=== PATIENT | female | born 1995 | race Caucasian/White ===

== ENCOUNTER → 2017-08-17 14:50 | Outpatient (CLI) | payer SELFPAY | PROVIDERS: Visit Provider Obstetrics & Gynecology | DX: N91.2 Amenorrhea, unspecified (principal) | CPT/HCPCS: 36415; 84702 ==

== ENCOUNTER → 2017-08-27 13:13 | Outpatient (CLI) | payer SELFPAY ==
--- NOTE | 2017-08-27 13:13 | DT_ITS ---
This patient was seen during an EMR downtime August 23, 2017 - August 30, 2017. This patient may have a combination of paper and electronic documentation or all paper documentation. All documentation is viewable within the e-chart portion of [employer] for each patient visit.
[2017-08-27 14:51] LABS: Eosinophils% 0.9 % (0-5); Hematocrit 40.1 % (37-47); Hemoglobin 13.5 g/dl (12.0-15.0); Lymphocyte % 28.3 % (19-41); Mean Corp Hgb Conc 33.7 g/gl (32-36); Mean Corpuscular Hgb 28.6 pg (27.0-32.0); Mean Platelet Vol. 9.5 fl (6.2-12.0); POSITIVE COUNT NO; POSITIVE DIFFERENTIAL NO; POSITIVE MORPHOLOGY NO; Platelet Count 224 K/mm3 (150-450); RBC Distribution Width CV 12.7 % (11.6-14.6); RBC Distribution Width SD 38.7 fl (35.1-43.9); Red Blood Count 4.72 M/mm3 (4.2-5.4); White Blood Count 5.5 K/mm3 (4.4-11.0)
[2017-08-27 14:52] LABS: Absolute Lymphocyte Count 1.57 X10^3/ul (0.83-4.51); Absolute Neutrophil Count 3.4 X10^3/uL (2.0-7.7); Basophil# 0.02 X10^3/uL; Basophil% 0.4 % (0-1); Eosinophil# 0.05 X10^3/uL; Lymphocyte # 1.57 X10^3/ul (4.0); Neutrophil # 3.38 X10^3/uL (2.7-7.7)
[2017-08-28 10:59] LABS: Chlamydia Trachomatis by PCR Negative (Negative); Neisserai gonorrhoeae by PCR Negative (Negative); Probe Check PASS; Sample Adequacy Control PASS; Specimen Processing Control PASS
[2017-08-30 10:06] LABS: HIV - WCH Non-Reactive (Nonreactive); Rubella IgG 268.2 IU/mL
[2017-09-03 03:47] LABS: Rapid Plasmin Reagin (RPR) NONREACTIVE (NONREACTIVE)
== END ==
PROVIDERS: Visit Provider Obstetrics & Gynecology
DX: O09.899 Supervision of other high risk pregnancies, unspecified trimester (principal); Z3A.00 Weeks of gestation of pregnancy not specified
CPT/HCPCS: 36415; 85025; 86592; 86703; 86706; 86762; 86850; 86870; 86900; 87086; 87088; 87340; 87491; 87591

== ENCOUNTER → 2017-08-27 14:00 | Outpatient (CLI) | payer SELFPAY ==
--- NOTE | 2017-08-27 14:00 | DT_ITS ---
This patient was seen during an EMR downtime August 23, 2017 - August 30, 2017. This patient may have a combination of paper and electronic documentation or all paper documentation. All documentation is viewable within the e-chart portion of [employer] for each patient visit.
== END ==
PROVIDERS: Visit Provider Obstetrics & Gynecology
DX: O09.90 Supervision of high risk pregnancy, unspecified, unspecified trimester (principal)
CPT/HCPCS: 87086; 87491; 87591

== ENCOUNTER → 2017-09-07 14:50 | Outpatient (CLI) | payer SELFPAY | PROVIDERS: Visit Provider Obstetrics & Gynecology | DX: D80.9 Immunodeficiency with predominantly antibody defects, unspecified (principal) ==

== ENCOUNTER → 2017-11-08 17:09 | Outpatient (CLI) | payer MEDICAID, SELFPAY | PROVIDERS: Visit Provider Nurse Practitioner Women's Health | DX: N89.8 Other specified noninflammatory disorders of vagina (principal) | CPT/HCPCS: 87070; 87205 ==

== ENCOUNTER → 2017-11-24 13:18 | Outpatient (CLI) | payer MEDICAID, SELFPAY | PROVIDERS: Visit Provider Obstetrics & Gynecology | DX: Z34.92 Encounter for supervision of normal pregnancy, unspecified, second trimester (principal); Z3A.20 20 weeks gestation of pregnancy | CPT/HCPCS: 76805 ==

== ENCOUNTER → 2017-12-08 09:58 | Outpatient (CLI) | payer MEDICAID, SELFPAY ==
[2017-12-08 11:26] LABS: Creatinine, Urine (random) < 13.00 mg/dL (NO RANGE EST.); Protein, Urine (Random) < 6.0 mg/dL (<11.9)
[2017-12-08 12:44] LABS: Absolute Lymphocyte Count 1.25 X10^3/ul (0.83-4.51); Absolute Neutrophil Count 5.3 X10^3/uL (2.0-7.7); Basophil# 0.01 X10^3/uL; Basophil% 0.1 % (0-1); Eosinophil# 0.03 X10^3/uL; Eosinophils% 0.4 % (0-5); Hematocrit 31.4 % (37-47); Hemoglobin 10.5 g/dl (12.0-15.0); Lymphocyte # 1.25 X10^3/ul (4.0); Lymphocyte % 17.6 % (19-41); Mean Corp Hgb Conc 33.4 g/gl (32-36); Mean Corpuscular Hgb 28.5 pg (27.0-32.0); Mean Corpuscular Volume 85.3 fL (81-99); Mean Platelet Vol. 10.2 fl (6.2-12.0); Monocyte# 0.49 X10^3/uL; Monocyte% 6.9 % (0-10); Neutrophil # 5.27 X10^3/uL (2.7-7.7); Neutrophil % 74.4 % (47-70); Platelet Count 188 K/mm3 (150-450); RBC Distribution Width CV 12.6 % (11.6-14.6); RBC Distribution Width SD 37.8 fl (35.1-43.9); Red Blood Count 3.68 M/mm3 (4.2-5.4); White Blood Count 7.1 K/mm3 (4.4-11.0)
[2017-12-08 12:49] LABS: POSITIVE COUNT NO; POSITIVE DIFFERENTIAL NO; POSITIVE MORPHOLOGY NO
[2017-12-08 12:59] LABS: ALB/GLOB Ratio 0.8 RATIO (0.9-2.4); AST(SGOT) 12 U/L (15-37); Alanine Aminotransfer ALT/SGPT 14 U/L (13-56); Albumin, Serum 2.7 g/dL (3.2-5.0); Alkaline Phosphatase 69 U/L (45-117); Anion Gap 11 (5-15); BUN 5 mg/dL (7-18); BUN/Creat Ratio 10.9 RATIO (10-20); Calcium,Total 7.9 mg/dL (8.5-10.1); Chloride 105 mmol/L (98-107); Creatinine, Serum 0.46 mg/dL (0.55-1.02); EST Glomerular Filtration Rate 178 mL/min (>60); Est Glom Filt Rate - Afr Amer 215 mL/min (>60); Globulin 3.6 g/dL (2.2-4.2); Glucose 97 mg/dL (74-106); LDH 179 U/L (84-246); Potassium 3.4 mmol/L (3.5-5.1); Protein, Total 6.3 g/dL (6.4-8.2); Sodium Level 136 mmol/L (136-145); Uric Acid 2.6 mg/dL (2.6-6.0)
== END ==
PROVIDERS: Visit Provider Nurse Practitioner Women's Health
DX: O09.90 Supervision of high risk pregnancy, unspecified, unspecified trimester (principal); Z86.32 Personal history of gestational diabetes; Z3A.00 Weeks of gestation of pregnancy not specified
CPT/HCPCS: 36415; 80053; 82570; 83615; 84156; 84550; 85025; 87086; 87088

== ENCOUNTER → 2018-01-06 15:38 | Outpatient (CLI) | payer MEDICAID, SELFPAY ==
[2018-01-06 17:35] LABS: Glucose Challenge Gest 1H 50g 110 mg/dL (70-140)
[2018-01-06 17:38] LABS: Absolute Neutrophil Count 5.1 X10^3/uL (2.0-7.7); Basophil# 0.01 X10^3/uL; Basophil% 0.1 % (0-1); Eosinophil# 0.05 X10^3/uL; Eosinophils% 0.7 % (0-5); Hematocrit 30.9 % (37-47); Hemoglobin 9.9 g/dl (12.0-15.0); Lymphocyte % 19.3 % (19-41); Mean Corpuscular Hgb 26.7 pg (27.0-32.0); Mean Corpuscular Volume 83.3 fL (81-99); Mean Platelet Vol. 9.5 fl (6.2-12.0); Monocyte# 0.63 X10^3/uL; Monocyte% 8.7 % (0-10); Neutrophil # 5.09 X10^3/uL (2.7-7.7); Neutrophil % 70.2 % (47-70); Platelet Count 205 K/mm3 (150-450); RBC Distribution Width SD 38.3 fl (35.1-43.9); Red Blood Count 3.71 M/mm3 (4.2-5.4); White Blood Count 7.3 K/mm3 (4.4-11.0)
[2018-01-06 17:43] LABS: POSITIVE COUNT NO; POSITIVE DIFFERENTIAL NO; POSITIVE MORPHOLOGY NO
== END ==
PROVIDERS: Referring Provider Nurse Practitioner Women's Health; Visit Provider Nurse Practitioner Women's Health
DX: Z34.90 Encounter for supervision of normal pregnancy, unspecified, unspecified trimester (principal); Z86.32 Personal history of gestational diabetes
CPT/HCPCS: 36415; 82950; 85025; 86850; 86870; 86900

== ENCOUNTER 2018-01-15 10:35 | Outpatient (CLI) | payer MEDICAID, SELFPAY ==
[2018-01-15 10:47] VITALS: BMI 24.6
[2018-01-15 11:44] LABS: Hematocrit 30.9 % (37-47); Hemoglobin 9.9 g/dl (12.0-15.0); Mean Corpuscular Hgb 26.4 pg (27.0-32.0); Mean Corpuscular Volume 82.4 fL (81-99); Mean Platelet Vol. 8.9 fl (6.2-12.0); Platelet Count 154 K/mm3 (150-450); RBC Distribution Width CV 13.7 % (11.6-14.6); RBC Distribution Width SD 41.4 fl (35.1-43.9); Red Blood Count 3.75 M/mm3 (4.2-5.4); White Blood Count 6.4 K/mm3 (4.4-11.0)
[2018-01-15 11:45] LABS: Scan Indicated on CBC? Y/N NO
[2018-01-15 11:57] LABS: Fibrinogen 338 mg/dl (203-444)
--- NOTE | 2018-01-16 02:59 | OB.TRI.NOTE ---
- Problem List (1) Vaginal bleeding during Status: Acute History of Present Illness Date of Service: 01/15/18 Was patient seen by the physician?: No Reason For Visit: BLEEDING History of Present Illness: co small vaginal bleeding no regular ctx Allergies No Known Allergies Allergy (Verified 01/15/18 10:51) - Pertinent Past Medical History Medical History: Past Medical History (Last Reviewed 01/06/18 @ 15:06 by Cece Mckeon) RH negative Laboratory Studies: Laboratory Tests 01/15/18 01/15/18 Range/Units 11:26 11:26 WBC 6.4 (4.4-11.0) K/mm3 RBC 3.75 L (4.2-5.4) M/mm3 Hgb 9.9 L (12.0-15.0) g/dl Hct 30.9 L (37-47) % MCV 82.4 (81-99) fL MCH 26.4 L (27.0-32.0) pg MCHC 32.0 (32-36) g/gl RDW 13.7 (11.6-14.6) % RDW Differential 41.4 (35.1-43.9) fl Plt Count 154 (150-450) K/mm3 MPV 8.9 (6.2-12.0) fl Fibrinogen 338 (203-444) mg/dl NST - FHR Rate Baby A Baseline: 150 Variability:: Moderate Accelerations:: 15 x 15 Decelerations:: None NST Reactive:: Yes FHR Category:: Category I Uterine Activity:: no regular Impression/Plan vaginal bleeding - cervix closed and normal cbc fibrinogen, no labor. dc home precautions reviewed
== END 2018-01-15 13:30 | disposition home or self-care (01) ==
LOC: WPOUT 10:38 → WP 10:39
PROVIDERS: Referring Provider Obstetrics & Gynecology; Visit Provider Obstetrics & Gynecology
DX: O46.90 Antepartum hemorrhage, unspecified, unspecified trimester (principal); Z3A.00 Weeks of gestation of pregnancy not specified
CPT/HCPCS: 36415; 59025; 59050; 85027; 85384; 99218; G0378

== ENCOUNTER 2018-01-23 20:51 | Outpatient (CLI) | payer MEDICAID, SELFPAY ==
[2018-01-23 21:22] VITALS: BMI 24.6
[2018-01-23 21:56] LABS: Color, Urine Yellow (Yellow); Glucose, Dipstick Normal (Normal); Leukocyte Esterase-Dipstick 500 /ul (Negative); Nitrite-Dipstick Negative (Negative); Occult Blood-Urine 10 /ul (Negative); Protein-Dipstick 30 mg/dl (Negative); Specific Gravity, Urine 1.025 (1.002-1.030); Urine Bilirubin Dipstick Negative (Negative); Urine Clarity Sl. Cloudy (Clear); Urine Urobilinogen 1 mg/dl (Normal)
[2018-01-23 22:04] LABS: Ketone-Dipstick 150 mg/dl (Negative)
[2018-01-23 22:06] LABS: White Blood Cells 50-100 SEEN /hpf (0-5)
[2018-01-23 22:10] LABS: Red Blood Cells-Urine 5-10 SEEN /hpf (0-5); Squamous Epithelial Cells - UA 25-50 SEEN /hpf (5-10)
[2018-01-23 22:11] LABS: Bacteria 3+ /hpf (None Seen)
[2018-01-23 22:12] LABS: Mucous, Urine 2+ /hpf (<or=2+); Yeast-Urine RARE /hpf (None Seen)
[2018-01-23 22:14] LABS: Fetal Fibronectin Negative
[2018-01-23 23:40] VITALS: RESP 18
--- NOTE | 2018-01-31 21:18 | OB.TRI.NOTE ---
- Problem List (1) False labor Status: Acute (2) Vaginal bleeding during Status: Acute History of Present Illness Date of Service: 01/23/18 Was patient seen by the physician?: No Reason For Visit: RULE OUT LABOR History of Present Illness: co small bleeding and irregular ctx. she has been under increased stress lately due to her leaving her. Allergies No Known Allergies Allergy (Verified 01/23/18 21:21) - Pertinent Past Medical History Medical History: Past Medical History (Last Reviewed 01/18/18 @ 15:11 by Adrienne Sue) RH negative Laboratory Studies: Laboratory Tests 01/23/18 01/23/18 Range/Units 21:12 19:40 Urine Color Yellow (Yellow) Urine Clarity Sl. Cloudy (Clear) Urine pH 6.0 (5.0 - 8.0) Ur Specific [place] 1.025 (1.002-1.030) Urine Protein 30 H (Negative) mg/dl Urine Glucose (UA) Normal (Normal) mg/dl Urine Ketones 150 H (Negative) mg/dl Urine Occult Blood 10 H (Negative) /ul Urine Nitrite Negative (Negative) Urine Bilirubin Negative (Negative) mg/dL Urine Urobilinogen 1 H (Normal) mg/dl Ur Leukocyte Esterase 500 H (Negative) /ul Urine RBC 5-10 SEEN (0-5) /hpf Urine WBC 50-100 SEEN (0-5) /hpf Ur Squamous Epith Cells 25-50 SEEN (5-10) /hpf Urine Bacteria 3+ (None Seen) /hpf Urine Mucus 2+ (<or=2+) /hpf Urine Yeast RARE (None Seen) /hpf Fibronectin Negative Physical Exam Vitals: Vital Signs Resp 18 01/23/18 23:40 NST - FHR Rate Baby A Baseline: 145 Variability:: Moderate Accelerations:: 10 x 10 Decelerations:: None NST Reactive:: Yes FHR Category:: Category I Uterine Activity:: irritability Impression/Plan threatened labor, small bleeding. cervix not dilated, extended monitoring showed reassuring status. no labor. dc home kick counts and labor precautions.
== END 2018-01-23 23:40 | disposition home or self-care (01) ==
LOC: WPOUT 21:06 → WP 21:07
PROVIDERS: Referring Provider Obstetrics & Gynecology; Visit Provider Obstetrics & Gynecology
DX: O60.00 Preterm labor without delivery, unspecified trimester (principal); O46.90 Antepartum hemorrhage, unspecified, unspecified trimester; Z3A.00 Weeks of gestation of pregnancy not specified
CPT/HCPCS: 59025; 59050; 81001; 82731; 87086; 87088; 99218; G0378

== ENCOUNTER 2018-09-07 21:56 | Emergency (ER) | payer MEDICAID, SELFPAY ==
[2018-04-26 14:12] VITALS: BMI 26.6
[2018-09-07 21:57] VITALS: BP 113/97; PULSE 102; RESP 15; TEMP 37.3; O2SAT 99; BMI 20.4
[2018-09-07 22:15] LABS: Mucous, Urine 0 SEEN /hpf (<or=2+); Red Blood Cells-Urine 0 SEEN /hpf (0-5)
[2018-09-07 22:16] LABS: Color, Urine Yellow (Yellow); Glucose, Dipstick Normal (Normal); Ketone-Dipstick Negative (Negative); Leukocyte Esterase-Dipstick 500 /ul (Negative); Nitrite-Dipstick Positive (Negative); Occult Blood-Urine 150 /ul (Negative); Protein-Dipstick 100 mg/dl (Negative); Specific Gravity, Urine 1.015 (1.002-1.030); Urine Bilirubin Dipstick Negative (Negative); Urine Clarity Cloudy (Clear); Urine Urobilinogen Normal (Normal)
[2018-09-07 22:19] LABS: Internal QC Validated? YES +Cl - CLEAR BKGD; Pregnancy, Urine Negative Negative
[2018-09-07 22:24] LABS: White Blood Cells >100 SEEN /hpf (0-5)
[2018-09-07 22:25] LABS: Bacteria 3+ /hpf (None Seen); Squamous Epithelial Cells - UA 5-10 SEEN /hpf (5-10)
--- NOTE | 2018-09-07 22:34 | ED.DCSUM_ITS ---
History of Present Illness Chief Complaint: Flank Pain Informant: Patient Onset: Weeks - Onset 1 week ago Context: Sudden Onset Timing: Continuous Quality: Pain Location: Right flank and right anterior mid abdomen Current Severity: Mild Maximum Severity: Moderate Worsened by: Movement Relieved by: Better if patient remains still Associated Symptoms: Nausea, dysuria, frequency Narrative: Patient is a 22-year-old woman who reports right flank pain that started approximate 1 week ago. She thought she pulled a muscle. Pain radiated anteriorly. She now complains of dysuria and frequency. She denies fever or chills. She does report nausea without vomiting diarrhea. She has not had a menstrual period in 3 years. She has an IUD in place. She has no symptoms of . She has no other complaints. Prior similar symptoms: Yes - Pyelonephritis Recent Illness/Hospitalization: No - Past Medical History (1) History of pyelonephritis Status: Acute Past Medical History - Allergies and Home Meds Allergies/Adverse Reactions: Allergies No Known Allergies Allergy (Verified 09/07/18 22:01) Primary Care Physician: Care Physician,No Primary [Primary Care Provider] - Prior records reviewed: Yes Lives: Spouse/ Significant Other, With Family Smoking Status: Never smoker Alcohol: Rare Review of Systems General: Denies: Chills, Fever, Malaise, Subjective, Sweats Eyes: Denies: Visual changes - bilaterally, Blurred Vision - bilaterally ENT: Denies: Rhinorrhea - Right, Sore throat Cardiovascular: Denies: Chest pain, Palpitations, Heart racing Respiratory: Denies: Dyspnea, Cough, Dyspnea on exertion Gastrointestinal: Reports: Abdominal pain, Nausea. Denies: Vomiting, Diarrhea, Constipation, Melena - ., Hematochezia Genitourinary: Reports: Dysuria, Frequency - .. Denies: Hematuria Musculoskeletal: Reports: Back pain. Denies: Myalgias, Arthralgias, Neck pain, Swelling, Extremity Pain Skin: Denies: Rash, Wounds Neurological: Denies: Headache, Weakness Hematologic: Denies: Easy bruising, Easy bleeding Allergy: Denies: Uticaria, Swelling of the mouth, Swelling of the tongue Physical Exam Vital Signs/Narrative: Vital Signs Temp Pulse Resp BP Pulse Ox 09/07/18 21:57 99.1 F 102 H 15 113/97 H 99 Inital Vital Signs reviewed: Yes General: Well nourished, Well developed, No Acute Distress Head: Normocephalic, Atraumatic Eyes: Perrl, EOMI. Negative for: Pale conjunctiva, Scleral icterus, - ENT: Moist mucous membranes, No rhinorrhea Neck: Supple, Nontender, No lymphadenopathy, No JVD Cardiovascular: Regular rhythm, No murmurs, Normal S1, Normal S2, Tachycardia Respiratory: No distress, CTA bilaterally, Chest nontender Abdomen: Soft, Nontender, Nondistended, Normal bowel sounds Back: Nontender, Normal Inspection, CVA tenderness - On the right side Extremities: Nontender, No edema Skin: Normal color, No rash, No Trauma. Negative for: Cyanosis, Diaphoresis, Jaundice Neurological: Alert, Oriented x3, Cranial nerves II-XII grossly intact, Normal Strength, Normal Sensation Psychological: Normal affect, Normal Mood Diagnostic/Tx/Re-eval - Medical Decision Making Patient's history and physical exam is consistent with pyelonephritis. UA was obtained. UA is consistent with infection. Urine culture was sent and patient received 1 dose of Rocephin. She was discharged with 7-day course of ciprofloxacin. Patient was instructed follow-up with her primary care physician. ED Disposition - Plan for ED Patient: Disposition: Home or Assisted Living Diagnosis: Acute pyelonephritis Instructions: PYELONEPHRITIS, Female (Adult) Prescriptions: Ciprofloxacin [Cipro] 500 mg PO BID #14 tab Prescription Printed Hydrocodone Bitart/Apap 5-325 [[place] 5MG-325MG] 1 tab PO Q6H PRN PRN 3 Days #10 tab PRN Reason: Pain Prescription Printed Referrals: Care Physician,No Primary [Primary Care Provider] - Mony Billingsley MD [STAFF PHYSICIAN] - 3-5 Days if not improving
[2018-09-07] MEDS: Ceftriaxone 1 GM/50 ML BAG IV (22:56)
[2018-09-07] MEDS: HYDROcodone Bitartrate/Apap 5/325 Tablet PO (23:01)
[2018-09-07 23:51] VITALS: RESP 15
== END 2018-09-07 23:52 | disposition home or self-care (01) ==
PROVIDERS: Emergency Provider Emergency Medicine
DX: N10 Acute pyelonephritis (principal); Z97.5 Presence of (intrauterine) contraceptive device
CPT/HCPCS: 81001; 81025; 87086; 87088; 87186; 96365; 99284; J7050; A4216

== ENCOUNTER 2018-09-17 21:43 | Emergency (ER) | payer MEDICAID, SELFPAY ==
[2018-09-17 21:43] VITALS: BP 94/79; PULSE 92; RESP 18; O2SAT 98
[2018-09-17 21:44] VITALS: BP 103/56; PULSE 111; RESP 20; TEMP 37.4; O2SAT 98; BMI 22.1
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
[2018-09-17] MEDS: fentaNYL 100 MCG/2 ML Ampul 50 MCG IV (21:57)
[2018-09-17] MEDS: Ondansetron 4 MG/2 ML Vial IV (21:57)
[2018-09-17 22:07] LABS: Absolute Lymphocyte Count 3.15 X10^3/ul (0.83-4.51); Absolute Neutrophil Count 3.8 X10^3/uL (2.0-7.7); Basophil# 0.03 X10^3/uL; Basophil% 0.4 % (0-1); Eosinophil# 0.11 X10^3/uL; Eosinophils% 1.4 % (0-5); Hematocrit 40.2 % (37-47); Hemoglobin 13.2 g/dl (12.0-15.0); Lymphocyte # 3.15 X10^3/ul (4.0); Lymphocyte % 41.2 % (19-41); Mean Corp Hgb Conc 32.8 g/gl (32-36); Mean Corpuscular Hgb 25.3 pg (27.0-32.0); Mean Platelet Vol. 9.2 fl (6.2-12.0); Monocyte% 6.5 % (0-10); Neutrophil % 49.7 % (47-70); Platelet Count 342 K/mm3 (150-450); RBC Distribution Width CV 14.6 % (11.6-14.6); RBC Distribution Width SD 39.5 fl (35.1-43.9); Red Blood Count 5.22 M/mm3 (4.2-5.4); White Blood Count 7.7 K/mm3 (4.4-11.0)
[2018-09-17 22:08] LABS: POSITIVE COUNT NO; POSITIVE DIFFERENTIAL NO; POSITIVE MORPHOLOGY NO
[2018-09-17 22:11] LABS: Color, Urine Yellow (Yellow); Glucose, Dipstick Normal (Normal); Ketone-Dipstick Negative (Negative); Leukocyte Esterase-Dipstick 100 /ul (Negative); Nitrite-Dipstick Negative (Negative); Occult Blood-Urine 150 /ul (Negative); Protein-Dipstick 15 mg/dl (Negative); Specific Gravity, Urine 1.025 (1.002-1.030); Urine Bilirubin Dipstick Negative (Negative); Urine Clarity Clear (Clear); Urine Urobilinogen Normal (Normal)
[2018-09-17 22:14] LABS: Internal QC Validated? YES +Cl - CLEAR BKGD; Pregnancy, Urine Negative Negative
[2018-09-17 22:16] LABS: White Blood Cells 5-10 SEEN /hpf (0-5)
[2018-09-17 22:17] LABS: Bacteria 1+ /hpf (None Seen); Mucous, Urine 1+ /hpf (<or=2+); Red Blood Cells-Urine 10-25 SEEN /hpf (0-5); Squamous Epithelial Cells - UA 0-5 SEEN /hpf (5-10)
[2018-09-17 22:18] LABS: ALB/GLOB Ratio 1.1 RATIO (0.9-2.4); AST(SGOT) 19 U/L (15-37); Alanine Aminotransfer ALT/SGPT 19 U/L (13-56); Alkaline Phosphatase 101 U/L (45-117); Anion Gap 3 (5-15); BUN 13 mg/dL (7-18); BUN/Creat Ratio 15.1 RATIO (10-20); Calcium,Total 8.8 mg/dL (8.5-10.1); Chloride 108 mmol/L (98-107); Creatinine, Serum 0.86 mg/dL (0.55-1.02); EST Glomerular Filtration Rate 85 mL/min (>60); Est Glom Filt Rate - Afr Amer 103 mL/min (>60); Globulin 3.8 g/dL (2.2-4.2); Glucose 111 mg/dL (74-106); Protein, Total 7.8 g/dL (6.4-8.2); Sodium Level 140 mmol/L (136-145)
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
[2018-09-17 22:24] LABS: Amphetamine Urine VISTA NEGATIVE (<1000 ng/mL); Barbiturate Urine VISTA NEGATIVE (< 200 ng/mL); Benzodiazepine Urine VISTA NEGATIVE (< 200 ng/mL); Cocaine Urine VISTA NEGATIVE (< 300 ng/mL); Ecstacy Urine VISTA NEGATIVE (< 500 ng/mL); Methadone Urine VISTA NEGATIVE (< 300 ng/mL); PCP Urine VISTA NEGATIVE (< 25 ng/mL); THC Urine VISTA POSITIVE (< 50 ng/mL); Vista UDS pH Range 5
[2018-09-17 22:32] LABS: Alcohol, Blood (Medical)-Serum < 3.0 mg/dL
[2018-09-17 22:37] VITALS: O2SAT 100
[2018-09-17 22:55] VITALS: BP 116/72; PULSE 94; RESP 16; O2SAT 100
== END 2018-09-17 22:45 | disposition short-term general hospital (02) ==
PROVIDERS: Emergency Provider Emergency Medicine
DX: S00.81XA Abrasion of other part of head, initial encounter (principal); S02.2XXA Fracture of nasal bones, initial encounter for closed fracture; S92.351A Displaced fracture of fifth metatarsal bone, right foot, initial encounter for closed fracture; S06.9X9A Unspecified intracranial injury with loss of consciousness of unspecified duration, initial encounter; V43.62XA Car passenger injured in collision with other type car in traffic accident, initial encounter; Y93.9 Activity, unspecified; Y92.89 Other specified places as the place of occurrence of the external cause; Y99.9 Unspecified external cause status; Z72.0 Tobacco use
CPT/HCPCS: 73630; 80053; 80307; 80320; 81001; 81025; 85025; 96374; 96375; 99285; G0480; J2405

== ENCOUNTER → 2018-09-29 10:58 | Outpatient (CLI) | payer MEDICAID, SELFPAY ==
[2018-09-17 21:44] VITALS: BMI 22.1
[2018-09-29 13:12] LABS: hCG Titer Quant., Serum < 1 mIU/mL (1-3)
== END ==
PROVIDERS: Referring Provider Obstetrics & Gynecology; Visit Provider Obstetrics & Gynecology
DX: N91.2 Amenorrhea, unspecified (principal)
CPT/HCPCS: 36415; 84702

== ENCOUNTER → 2018-10-06 16:41 | Outpatient (CLI) | payer MEDICAID, SELFPAY ==
[2018-10-06 14:47] VITALS: BMI 22.1
[2018-10-06 22:13] LABS: Chlamydia Trachomatis by PCR Negative (Negative); Neisserai gonorrhoeae by PCR Negative (Negative)
[2018-10-06 22:14] LABS: Probe Check PASS; Sample Adequacy Control PASS; Specimen Processing Control PASS
== END ==
PROVIDERS: Referring Provider Nurse Practitioner Women's Health; Visit Provider Nurse Practitioner Women's Health
DX: Z11.3 Encounter for screening for infections with a predominantly sexual mode of transmission (principal)
CPT/HCPCS: 87491; 87591

== ENCOUNTER → 2018-12-16 13:38 | Outpatient (CLI) | payer MEDICAID, SELFPAY ==
[2018-10-06 14:47] VITALS: BMI 22.1
[2018-12-16 15:54] LABS: hCG Titer Quant., Serum < 1 mIU/mL (1-3)
== END ==
PROVIDERS: Referring Provider Obstetrics & Gynecology; Visit Provider Obstetrics & Gynecology
DX: N92.6 Irregular menstruation, unspecified (principal)
CPT/HCPCS: 36415; 84702

== ENCOUNTER → 2019-01-02 14:18 | Outpatient (CLI) | payer MEDICAID, SELFPAY ==
[2018-10-06 14:47] VITALS: BMI 22.1
[2019-01-02 16:29] LABS: hCG Titer Quant., Serum 337 mIU/mL (1-3)
== END ==
PROVIDERS: Referring Provider Obstetrics & Gynecology; Visit Provider Obstetrics & Gynecology
DX: N91.2 Amenorrhea, unspecified (principal)
CPT/HCPCS: 36415; 84702

== ENCOUNTER → 2019-01-04 10:46 | Outpatient (CLI) | payer MEDICAID, SELFPAY ==
[2018-10-06 14:47] VITALS: BMI 22.1
[2019-01-04 12:36] LABS: hCG Titer Quant., Serum 801 mIU/mL (1-3)
== END ==
PROVIDERS: Referring Provider Obstetrics & Gynecology; Visit Provider Obstetrics & Gynecology
DX: N91.2 Amenorrhea, unspecified (principal)
CPT/HCPCS: 36415; 84702

== ENCOUNTER → 2019-01-23 11:57 | Outpatient (CLI) | payer SELFPAY ==
[2019-01-23 11:12] VITALS: BMI 22.1
[2019-01-23 12:34] LABS: Absolute Lymphocyte Count 1.05 X10^3/uL (0.83-4.51); Absolute Neutrophil Count 3.1 X10^3/uL (2.0-7.7); Basophil# 0.01 X10^3/uL; Basophil% 0.2 % (0-1); Eosinophil# 0.03 X10^3/uL; Eosinophils% 0.7 % (0-5); Hematocrit 36.8 % (37-47); Hemoglobin 12.3 g/dL (12.0-15.0); Lymphocyte # 1.05 X10^3/ul (4.0); Lymphocyte % 23.6 % (19-41); Mean Corp Hgb Conc 33.4 g/dL (32-36); Mean Corpuscular Volume 80.7 fL (81-99); Mean Platelet Vol. 9.4 fl (6.2-12.0); Monocyte# 0.27 X10^3/uL; Monocyte% 6.1 % (0-10); NRBC Flagged by Analyzer 0 % (0-5); Neutrophil # 3.07 X10^3/uL (2.7-7.7); Neutrophil % 69.2 % (47-70); Platelet Count 215 K/mm3 (150-450); RBC Distribution Width CV 13.8 % (11.6-14.6); RBC Distribution Width SD 39.8 fl (35.1-43.9); Red Blood Count 4.56 M/mm3 (4.2-5.4); White Blood Count 4.4 K/mm3 (4.4-11.0)
[2019-01-23 13:03] LABS: Glucose Challenge Gest 1H 50g 111 mg/dL (70-140)
[2019-01-23 13:50] LABS: HIV - WCH Non-Reactive (Nonreactive); Hepatitis B Surface Antigen Non-Reactive (Nonreactive); Rubella IgG 252.4 IU/mL
[2019-01-23 17:02] LABS: Chlamydia Trachomatis by PCR Negative (Negative); Neisserai gonorrhoeae by PCR Negative (Negative); Specimen Processing Control PASS
[2019-01-23 17:03] LABS: Probe Check PASS; Sample Adequacy Control PASS
[2019-01-26 02:20] LABS: Rapid Plasmin Reagin (RPR) NONREACTIVE (NONREACTIVE)
[2019-01-27 16:03] LABS: HPV Reflexed? NOT INDICATED
== END ==
PROVIDERS: Referring Provider Nurse Practitioner Women's Health; Visit Provider Nurse Practitioner Women's Health
DX: Z12.4 Encounter for screening for malignant neoplasm of cervix (principal); O09.90 Supervision of high risk pregnancy, unspecified, unspecified trimester; O36.0990 Maternal care for other rhesus isoimmunization, unspecified trimester, not applicable or unspecified; O09.899 Supervision of other high risk pregnancies, unspecified trimester; Z67.91 Unspecified blood type, Rh negative
CPT/HCPCS: 36415; 82950; 85025; 86592; 86703; 86762; 86850; 86870; 86900; 86901; 87086; 87088; 87340; 87491; 87591; 88175; G0145

== ENCOUNTER → 2019-02-20 10:43 | Outpatient (CLI) | payer SELFPAY ==
[2019-02-20 10:36] VITALS: BMI 22.1
[2019-02-20 11:28] LABS: Absolute Lymphocyte Count 1.58 X10^3/uL (0.83-4.51); Absolute Neutrophil Count 3.3 X10^3/uL (2.0-7.7); Basophil# 0.02 X10^3/uL; Basophil% 0.4 % (0-1); Eosinophil# 0.03 X10^3/uL; Eosinophils% 0.6 % (0-5); Hemoglobin 13.2 g/dL (12.0-15.0); Lymphocyte # 1.58 X10^3/ul (4.0); Lymphocyte % 29.9 % (19-41); Mean Corp Hgb Conc 33.8 g/dL (32-36); Mean Corpuscular Hgb 27.7 pg (27.0-32.0); Mean Corpuscular Volume 81.8 fL (81-99); Mean Platelet Vol. 9.2 fl (6.2-12.0); Monocyte# 0.31 X10^3/uL; Monocyte% 5.9 % (0-10); NRBC Flagged by Analyzer 0 % (0-5); Neutrophil # 3.33 X10^3/uL (2.7-7.7); Neutrophil % 62.8 % (47-70); Platelet Count 226 K/mm3 (150-450); RBC Distribution Width CV 14.6 % (11.6-14.6); RBC Distribution Width SD 42.7 fl (35.1-43.9); Red Blood Count 4.77 M/mm3 (4.2-5.4); White Blood Count 5.3 K/mm3 (4.4-11.0)
== END ==
PROVIDERS: Nurse Practitioner Women's Health; Referring Provider Obstetrics & Gynecology; Visit Provider Obstetrics & Gynecology
DX: Z31.430 Encounter of female for testing for genetic disease carrier status for procreative management (principal); Z34.81 Encounter for supervision of other normal pregnancy, first trimester
CPT/HCPCS: 36415; 85025

== ENCOUNTER → 2019-03-20 16:48 | Outpatient (CLI) | payer SELFPAY ==
[2019-03-20 10:10] VITALS: BMI 22.1
[2019-03-20 19:04] LABS: Amphetamine Urine VISTA NEGATIVE (<1000 ng/mL); Barbiturate Urine VISTA NEGATIVE (< 200 ng/mL); Benzodiazepine Urine VISTA NEGATIVE (< 200 ng/mL); Cocaine Urine VISTA NEGATIVE (< 300 ng/mL); Ecstacy Urine VISTA NEGATIVE (< 500 ng/mL); Methadone Urine VISTA NEGATIVE (< 300 ng/mL); PCP Urine VISTA NEGATIVE (< 25 ng/mL); THC Urine VISTA NEGATIVE (< 50 ng/mL); Vista UDS pH Range 6
== END ==
LOC: LABSPEC 16:49
PROVIDERS: Referring Provider Obstetrics & Gynecology; Visit Provider Obstetrics & Gynecology
DX: Z87.898 Personal history of other specified conditions (principal)
CPT/HCPCS: 80307

== ENCOUNTER → 2019-05-15 16:19 | Outpatient (CLI) | payer MEDICAID, SELFPAY ==
[2019-05-15 10:36] VITALS: BMI 22.1
[2019-05-15 17:14] LABS: Amphetamine Urine VISTA NEGATIVE (<1000 ng/mL); Barbiturate Urine VISTA NEGATIVE (< 200 ng/mL); Benzodiazepine Urine VISTA NEGATIVE (< 200 ng/mL); Cocaine Urine VISTA NEGATIVE (< 300 ng/mL); Ecstacy Urine VISTA NEGATIVE (< 500 ng/mL); Methadone Urine VISTA NEGATIVE (< 300 ng/mL); PCP Urine VISTA NEGATIVE (< 25 ng/mL); THC Urine VISTA NEGATIVE (< 50 ng/mL); Vista UDS pH Range 5
== END ==
PROVIDERS: Referring Provider Obstetrics & Gynecology; Visit Provider Obstetrics & Gynecology
DX: Z87.898 Personal history of other specified conditions (principal)
CPT/HCPCS: 80307

== ENCOUNTER 2019-06-01 23:41 | Outpatient (CLI) | payer MEDICAID, SELFPAY ==
[2019-05-15 10:36] VITALS: BMI 22.1
[2019-06-01 23:56] VITALS: BP 118/63; PULSE 103
[2019-06-01 23:59] VITALS: TEMP 37; O2SAT 97
[2019-06-02 00:16] VITALS: BMI 24.5
[2019-06-02 00:57] LABS: ROM Internal Control Test YES-OK TO RESULT pt. (Internal QC); ROM Patient Test Negative (Negative)
--- NOTE | 2019-06-07 13:03 | OB.TRI.PN_ITS ---
Progress Notes Date of Service: 06/01/19 Progress Note: false labor FHT: 150 Moderate variability reactive no decelerations category I tracing [place]: no regular Contractions false labor or dilation dc home Laboratory Studies: Laboratory Tests 06/02/19 Range/Units 00:25 Vag Amniotic Fld Detect Negative (Negative) Multi Select Codes - Urinary/Genital Urinary/Genital CPT Codes: 71636-95 non-stress test Interp
== END 2019-06-02 01:13 | disposition home or self-care (01) ==
LOC: WPOUT 23:45 → OBT 23:45
PROVIDERS: Visit Provider Obstetrics & Gynecology
DX: O47.9 False labor, unspecified (principal); Z3A.00 Weeks of gestation of pregnancy not specified
CPT/HCPCS: 59025; 59050; 84112; 99218; G0378

== ENCOUNTER → 2019-06-12 13:54 | Outpatient (CLI) | payer MEDICAID, SELFPAY ==
[2019-06-12 13:31] VITALS: BMI 24.8
[2019-06-12 14:49] LABS: Absolute Neutrophil Count 5.8 X10^3/uL (2.0-7.7); Basophil# 0.02 X10^3/uL; Basophil% 0.3 % (0-1); Eosinophil# 0.03 X10^3/uL; Eosinophils% 0.4 % (0-5); Hematocrit 31.2 % (37-47); Hemoglobin 9.9 g/dL (12.0-15.0); Lymphocyte % 17.2 % (19-41); Mean Corp Hgb Conc 31.7 g/dL (32-36); Mean Corpuscular Volume 81.9 fL (81-99); Mean Platelet Vol. 9.4 fl (6.2-12.0); Monocyte# 0.41 X10^3/uL; Monocyte% 5.4 % (0-10); NRBC Flagged by Analyzer 0 % (0-5); Neutrophil # 5.77 X10^3/uL (2.7-7.7); Neutrophil % 76.3 % (47-70); Platelet Count 193 K/mm3 (150-450); RBC Distribution Width CV 12.8 % (11.6-14.6); RBC Distribution Width SD 37.6 fl (35.1-43.9); Red Blood Count 3.81 M/mm3 (4.2-5.4); White Blood Count 7.6 K/mm3 (4.4-11.0)
[2019-06-12 15:03] LABS: Glucose Challenge Gest 1H 50g 120 mg/dL (70-140)
== END ==
PROVIDERS: Referring Provider Obstetrics & Gynecology; Visit Provider Obstetrics & Gynecology
DX: Z34.90 Encounter for supervision of normal pregnancy, unspecified, unspecified trimester (principal)
CPT/HCPCS: 36415; 82950; 85025; 86850; 86870; 86900; 86901

== ENCOUNTER → 2019-08-15 16:58 | Outpatient (CLI) | payer MEDICAID, SELFPAY ==
[2019-08-15 14:25] VITALS: BMI 24.5
== END ==
PROVIDERS: Visit Provider Obstetrics & Gynecology
DX: O09.92 Supervision of high risk pregnancy, unspecified, second trimester (principal)
CPT/HCPCS: 87081

== ENCOUNTER → 2019-08-17 15:38 | Outpatient (CLI) | payer MEDICAID, SELFPAY ==
[2019-08-15 14:25] VITALS: BMI 24.5
== END ==
PROVIDERS: Referring Provider Obstetrics & Gynecology; Visit Provider Obstetrics & Gynecology
DX: Z11.59 Encounter for screening for other viral diseases (principal)
CPT/HCPCS: 87635; G2023; U0004

== ENCOUNTER 2019-08-18 04:24 | Inpatient (IN) | payer MEDICAID, SELFPAY ==
[2019-08-15 14:25] VITALS: BMI 24.5
[2019-08-18] VITALS (20 sets, daily range): BP systolic 93–119; BP diastolic 49–76; PULSE 75–102; RESP 16–20; TEMP 36.8–37.3; O2SAT 99–100; BMI 25.2
[2019-08-18] MEDS: Lactated Ringers 500 ML 999 ML IV (04:35)
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
[2019-08-18 04:49] LABS: Absolute Neutrophil Count 5.8 X10^3/uL (2.0-7.7); Basophil# 0.02 X10^3/uL; Basophil% 0.2 % (0-1); Eosinophil# 0.05 X10^3/uL; Eosinophils% 0.6 % (0-5); Hemoglobin 8.5 g/dL (12.0-15.0); Lymphocyte % 20.7 % (19-41); Mean Corp Hgb Conc 29.3 g/dL (32-36); Mean Corpuscular Hgb 21.4 pg (27.0-32.0); Mean Platelet Vol. 9.3 fl (6.2-12.0); Monocyte# 0.58 X10^3/uL; NRBC Flagged by Analyzer 0 % (0-5); Neutrophil # 5.83 X10^3/uL (2.7-7.7); Neutrophil % 70.9 % (47-70); Platelet Count 216 K/mm3 (150-450); RBC Distribution Width SD 39.3 fl (35.1-43.9); Red Blood Count 3.97 M/mm3 (4.2-5.4); White Blood Count 8.2 K/mm3 (4.4-11.0)
--- NOTE | 2019-08-18 04:56 | OP.PCM_ITS ---
Problem List (1) labor Status: Acute (2) Adnexal mass Status: Acute Comment: right ovarian cyst possible dermoid (3) Anemia affecting Status: Acute Comment: Start iron, check cbc in 1 month (4) History of gestational diabetes Status: Acute Comment: in 1st ; nl first trimester GCT (5) History of marijuana use Status: Acute Comment: tox screen next visit (6) History of depression Status: Acute Comment: no meds currently (7) History of pyelonephritis Status: Acute Comment: previous , urine culture neg this . (8) Status: Acute Qualifiers: Comment: Carrier screen negative, NIPT low risk, ntd screening declined. anatomy reviewed (9) Rh negative status during Status: Acute Qualifiers: Comment: already is Rh sensitized, rhogam not indicated (10) Rhesus isoimmunization affecting Status: Acute Qualifiers: Comment: MFM cocare. Antibody titers 1:128. FOB-A positive, MCA doppler assessment weekly, q4wk scans; twice weekly BPP at 32 weeks, 3rd child-blood transfusion in utero; delivery at 37-38 weeks. office appt. Q4 wks until 36 wks then wkly, delivery at 37-38 wks; COVID testing ordered (11) Supervision of high-risk Status: Acute Qualifiers: Comment: PRR JOSUÉ 09/09/19 Jim Hendrickson Lana. BF Christ(his first) Vaginal Delivery Maternal Presentation: Active Labor 23-year-old G6, P3 at 36 weeks 6 days presents in active labor 7 8 cm. She has a history of Rh disease but has had no signs of anemia in this . Final JOSUÉ: 09/09/19 Gestational age: 36 Weeks and 6 Days Date of Procedure: 08/18/19 Pre-Operative Diagnosis: ial Post-Operative Diagnosis: ial Surgery/ Procedure Performed: Spontaneous Vaginal Delivery Type of Anesthesia: None Description of Procedure: Patient began pushing and delivered the head in the [GEOFFREY] presentation. The head was delivered atraumatically [and a loose nuchal cord ?1 was identified and easily reduced over the 's head]. The anterior and posterior shoulders delivered without complication followed by the rest of the infant and the infant was placed on the maternal abdomen. Delayed cord clamping was employed for approximately 60 seconds. Cord was clamped and cut and gentle traction was applied to the cord and the placenta delivered spontaneously immediately following it was noted to be intact with three-vessel cord. The perineum and vagina were inspected and [noted to have no laceration]. EBL was [100 cc]. Patient and infant tolerated delivery well. Multi Select Codes - Urinary/Genital Urinary/Genital CPT Codes: 15560 Vaginal Delivery+ PP Care([facility])
[2019-08-18] MEDS: Oxytocin 30 units/NS 500 ml 30 UNITS/500 ML IV.SOLN 334 UNITS IV (05:40)
[2019-08-18] MEDS: Naproxen 250 MG Tablet 500 MG PO ×2 (06:18→16:50)
[2019-08-18] MEDS: oxyCODONE 5 MG Tablet PO (07:05)
[2019-08-18] MEDS: Acetaminophen 500 MG Tablet 1000 MG PO ×2 (11:51→21:05)
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
[2019-08-19] VITALS: BP 100/56; PULSE 63; RESP 14; TEMP 36.6
--- NOTE | 2019-08-19 02:26 | DCINST_ITS ---
Discharge Diet: No Restrictions Discharge Activity: Return to Normal Activity, May not drive while taking narcotic pain medications., May Shower May resume sexual activity in: 4-6 weeks Call your doctor if your incision/area has: Continuous Slow Oozing, Sudden Increased Bleeding, Increased Pain/ Swelling, Increased Redness, Foul Smelling Discharge Additional Instructions: If you experience any of the following, contact your healthcare provider. * Bleeding that soaks a pad every hour for 2 hours * Fever 100.4 or higher * Unrelieved incision or abdominal pain * Swelling, redness, discharge or bleeding from your incision or episiotomy site * Your incision begins to separate * Problems urinating (including inability to urinate or burning while urinating). * Visual changes * Severe headache * Flu-like symptoms * Pain or redness in one of both of your breasts * Pain, warmth, tenderness or swelling in your legs, especially the calf area * Frequent nausea and vomiting * Symptoms of depression or anxiety If you experience any of the following, call 911 or go to the nearest Emergency Room. * Chest pain * Problems breathing * Seizure activity * Partial or complete paralysis of a body part, slurred speech, weakness or drooping of the face, or a sudden inability to walk or hold your balance Allergies/Adverse Reactions: Allergies amoxicillin Allergy (Verified 08/15/19 14:24) Hives Medications to take at Discharge vitamin#30 30 mg iron-10 mg iron-folic acid 1 mg-omg3 capsule cap PO 04/19/19 Please Follow Up With: Brii Parkinson MD - [phone] When: Call to make an appointment with your doctor in 6 weeks. If you had elevated Blood pressure or 4th degree laceration you will need to be seen in 2 weeks. Primary Care Physician: Care Physician,No Primary [Primary Care Provider] - Test Results: Test results from this visit will be discussed in further detail at your follow- up appointment, if applicable.
--- NOTE | 2019-08-19 02:26 | PCM.DCVAG ---
Discharge Diet: No Restrictions Discharge Activity: Return to Normal Activity, May not drive while taking narcotic pain medications., May Shower May resume sexual activity in: 4-6 weeks Call your doctor if your incision/area has: Continuous Slow Oozing, Sudden Increased Bleeding, Increased Pain/ Swelling, Increased Redness, Foul Smelling Discharge Additional Instructions: If you experience any of the following, contact your healthcare provider. Bleeding that soaks a pad every hour for 2 hours Fever 100.4 or higher Unrelieved incision or abdominal pain Swelling, redness, discharge or bleeding from your incision or episiotomy site Your incision begins to separate Problems urinating (including inability to urinate or burning while urinating). Visual changes Severe headache Flu-like symptoms Pain or redness in one of both of your breasts Pain, warmth, tenderness or swelling in your legs, especially the calf area Frequent nausea and vomiting Symptoms of depression or anxiety If you experience any of the following, call 911 or go to the nearest Emergency Room. Chest pain Problems breathing Seizure activity Partial or complete paralysis of a body part, slurred speech, weakness or drooping of the face, or a sudden inability to walk or hold your balance Allergies/Adverse Reactions: Allergies amoxicillin Allergy (Verified 08/15/19 14:24) Hives Medications to take at Discharge vitamin#30 30 mg iron-10 mg iron-folic acid 1 mg-omg3 capsule cap PO 04/19/19 Please Follow Up With: Brii Parkinson MD - [phone] When: Call to make an appointment with your doctor in 6 weeks. If you had elevated Blood pressure or 4th degree laceration you will need to be seen in 2 weeks. Primary Care Physician: Care Physician,No Primary [Primary Care Provider] - Test Results: Test results from this visit will be discussed in further detail at your follow-up appointment, if applicable.
[2019-08-19 04:52] VITALS: BP 112/68; PULSE 79; RESP 16; TEMP 36.5
--- NOTE | 2019-08-19 05:08 | NURSING ---
Patient exclusively infant in [facility]. Independently going to [facility] every 2-3 hours for feeding. Has own pump in room and milk in fridge available for use. Mature milk already present. Mother has nursed all 3 previous children for at least a year per child. Has own lasinoh cream she requested to use.
[2019-08-19] MEDS: Naproxen 250 MG Tablet 500 MG PO (06:21)
--- NOTE | 2019-08-19 07:38 | PCM.PN.OB ---
Patient Problems: Active and Suspected Problems (Last Reviewed 08/15/19 @ 14:23 by Rhonda Cary) labor (Acute) Subjective: doing well no complaints pain controlled no CP SOB N V ambulating well tolerating po lochia moderate, going well - Physical Exam Vitals/I&O's: Vital Signs Temp Pulse Resp BP Pulse Ox 97.7 F L 79 16 112/68 99 08/19/19 04:52 08/19/19 04:52 08/19/19 04:52 08/19/19 04:52 08/18/19 16:50 Oxygen Delivery Method Room Air Weight: 156 lb 4.924 oz Body Mass Index (BMI) 25.2 Intake and Output for Last 24 Hours 08/17/19 08/18/19 08/19/19 23:59 23:59 23:59 Intake Total 1700 / 1700 Balance 1700 / 1700 General: Alert, Oriented x3 Current Medications Acetaminophen (Tylenol) 1,000 mg PO Q8H PRN PRN PRN Reason: Pain Score 1-3/10 Last Admin: 08/18/19 21:05 Dose: 1,000 mg Documented by: Bisacodyl (Dulcolax) 10 mg RECTAL UD PRN PRN Reason: If no BM Dibucaine (Dibucaine) 1 applic TOPICAL TID PRN PRN; Protocol PRN Reason: Discomfort Hydrocortisone (Hytone) 1 applic TOPICAL TID PRN PRN; Protocol PRN Reason: Discomfort Methylergonovine Maleate (Methergine) 0.2 mg IM X1 PRN PRN Reason: Excess bleeding/uterine atony Naproxen (Naprosyn) 500 mg PO Q8H PRN PRN PRN Reason: Pain Score 1-3/10 Last Admin: 08/19/19 06:21 Dose: 500 mg Documented by: Ondansetron HCl (Zofran) 4 mg IV Q4H PRN PRN PRN Reason: Nausea Oxycodone HCl (Oxyir) 5 - 10 mg PO Q4H PRN PRN PRN Reason: Pain Score 4-10/10 Last Admin: 08/18/19 07:05 Dose: 10 mg Documented by: Senna/Docusate Sodium (Senokot-S, Carmelita-Colace) 1 - 2 tablet PO DAILY PRN PRN PRN Reason: Constipation Simethicone (Mylicon) 80 mg PO PCHS PRN PRN Reason: Indigestion/Stomach pain Sodium Chloride () 5 - 15 ml IV UD PRN PRN Reason: SALINE FLUSH Medical Necessity - Tobacco Use Smoking Status: Former smoker Assessment/Plan All Active Problems (Last Reviewed 08/15/19 @ 14:23 by Rhonda Cary) labor (Acute) Adnexal mass (Acute) Anemia affecting (Acute) History of depression (Acute) (Acute) History of marijuana use (Acute) History of pyelonephritis (Acute) History of gestational diabetes (Acute) Supervision of high-risk (Acute) Rhesus isoimmunization affecting (Acute) Rh negative status during (Acute) s/p PPD #1 1. routine post delivery care 2. breast feeding- support given 3. rh negative with antibodies 4. rubella immune
[2019-08-19 08:00] VITALS: BP 112/73; PULSE 78; RESP 16; TEMP 36.5
[2019-08-19 14:00] VITALS: BP 112/68; PULSE 87; RESP 16; TEMP 36.4
[2019-08-19 19:38] VITALS: BP 109/59; PULSE 73; RESP 14; TEMP 36.6
[2019-08-20 02:46] VITALS: BP 114/66; PULSE 75; RESP 14; TEMP 36.5
--- NOTE | 2019-08-20 07:07 | PCM.PN.OB ---
Patient Problems: Active and Suspected Problems (Last Reviewed 08/15/19 @ 14:23 by Rhonda Cary) labor (Acute) Subjective: doing well no complaints pain controlled no CP SOB N V ambulating well tolerating po lochia moderate, going well - Physical Exam Vitals/I&O's: Vital Signs Temp Pulse Resp BP Pulse Ox 97.7 F L 75 14 114/66 99 08/20/19 02:46 08/20/19 02:46 08/20/19 02:46 08/20/19 02:46 08/18/19 16:50 Oxygen Delivery Method Room Air Weight: 156 lb 4.924 oz Body Mass Index (BMI) 25.2 Intake and Output for Last 24 Hours 08/18/19 08/19/19 08/20/19 23:59 23:59 23:59 Intake Total 1700 / 1700 Balance 1700 / 1700 General: Alert, Oriented x3 Current Medications Acetaminophen (Tylenol) 1,000 mg PO Q8H PRN PRN PRN Reason: Pain Score 1-3/10 Last Admin: 08/18/19 21:05 Dose: 1,000 mg Documented by: Bisacodyl (Dulcolax) 10 mg RECTAL UD PRN PRN Reason: If no BM Dibucaine (Dibucaine) 1 applic TOPICAL TID PRN PRN; Protocol PRN Reason: Discomfort Hydrocortisone (Hytone) 1 applic TOPICAL TID PRN PRN; Protocol PRN Reason: Discomfort Methylergonovine Maleate (Methergine) 0.2 mg IM X1 PRN PRN Reason: Excess bleeding/uterine atony Naproxen (Naprosyn) 500 mg PO Q8H PRN PRN PRN Reason: Pain Score 1-3/10 Last Admin: 08/19/19 06:21 Dose: 500 mg Documented by: Ondansetron HCl (Zofran) 4 mg IV Q4H PRN PRN PRN Reason: Nausea Oxycodone HCl (Oxyir) 5 - 10 mg PO Q4H PRN PRN PRN Reason: Pain Score 4-10/10 Last Admin: 08/18/19 07:05 Dose: 10 mg Documented by: Senna/Docusate Sodium (Senokot-S, Carmelita-Colace) 1 - 2 tablet PO DAILY PRN PRN PRN Reason: Constipation Simethicone (Mylicon) 80 mg PO PCHS PRN PRN Reason: Indigestion/Stomach pain Sodium Chloride () 5 - 15 ml IV UD PRN PRN Reason: SALINE FLUSH Medical Necessity - Tobacco Use Smoking Status: Former smoker Assessment/Plan All Active Problems (Last Reviewed 08/15/19 @ 14:23 by Rhonda Cary) labor (Acute) Adnexal mass (Acute) Anemia affecting (Acute) History of depression (Acute) (Acute) History of marijuana use (Acute) History of pyelonephritis (Acute) History of gestational diabetes (Acute) Supervision of high-risk (Acute) Rhesus isoimmunization affecting (Acute) Rh negative status during (Acute) s/p PPD # 2 1. routine post delivery care 2. breast feeding- support given 3. rh negative isoimmunized 4. rubella immune
[2019-08-20 08:00] VITALS: BP 104/62; PULSE 76; RESP 16; TEMP 36.7
== END 2019-08-20 12:15 | disposition home or self-care (01) | DRG 560 ==
LOC: WPOUT 04:25 → WP 04:25
PROVIDERS: Admitting Provider Obstetrics & Gynecology; Visit Provider Obstetrics & Gynecology
DX: O60.14X0 Preterm labor third trimester with preterm delivery third trimester, not applicable or unspecified (principal); O99.019 Anemia complicating pregnancy, unspecified trimester; D64.9 Anemia, unspecified; O36.0930 Maternal care for other rhesus isoimmunization, third trimester, not applicable or unspecified; O69.81X0 Labor and delivery complicated by cord around neck, without compression, not applicable or unspecified; Z3A.36 36 weeks gestation of pregnancy; Z37.0 Single live birth; Z87.59 Personal history of other complications of pregnancy, childbirth and the puerperium; Z86.59 Personal history of other mental and behavioral disorders; Z87.898 Personal history of other specified conditions; Z86.32 Personal history of gestational diabetes; Z87.448 Personal history of other diseases of urinary system; Z67.91 Unspecified blood type, Rh negative
CPT/HCPCS: 59025; 59050; 85025; 86850; 86870; 86900; 86901; 86920; 87081; 87635; 99218; G2023; J7120; G0378; U0004

== ENCOUNTER 2019-09-28 08:47 | Emergency (ER) | payer MEDICAID, SELFPAY ==
[2019-08-30 11:17] VITALS: BMI 25.2
[2019-09-28 08:51] VITALS: BP 116/81; PULSE 115; RESP 18; TEMP 37; O2SAT 96; BMI 22.4
--- NOTE | 2019-09-28 09:01 | ED.VIS.GEN ---
History of Present Illness Chief Complaint: Fever Informant: Patient Onset: Days Context: Gradual Onset Timing: Continuous Current Severity: Moderate Maximum Severity: Moderate Narrative: The patient is a 23-year-old female who is otherwise healthy that presents to the emergency department concerned that she may have a kidney infection. She states over the past 3 days, she has had some dysuria and frequency. She states over the past 24 hours, she has begun to have fevers, nausea, and vomiting. She does admit to some right flank pain. She states she is vomited approximately 4-5 times. It is nonbloody or bilious. She still moving her bowels without issue. She does describe myalgias and arthralgias. She states she had a temperature of 102 yesterday. She has no history of immunosuppression. She is otherwise been in her normal state of health. Prior similar symptoms: Yes Recent Illness/Hospitalization: No Past Medical History - Allergies and Home Meds Allergies/Adverse Reactions: Allergies amoxicillin Allergy (Verified 09/28/19 08:50) Hives Primary Care Physician: Care Physician,No Primary [Primary Care Provider] - Prior records reviewed: Yes Past Medical History: None Surgical History: noncontributory Smoking Status: Former smoker Review of Systems General: Reports: Chills, Fever. Denies: Sweats Eyes: Denies: Visual changes - bilaterally, Diplopia ENT: Denies: Rhinorrhea, Sore throat Cardiovascular: Denies: Chest pain, Palpitations Respiratory: Denies: Dyspnea, Cough, Dyspnea on exertion Gastrointestinal: Reports: Nausea, Vomiting. Denies: Abdominal pain, Diarrhea, Melena, Hematochezia Genitourinary: Reports: Dysuria, Frequency. Denies: Hematuria Musculoskeletal: Reports: Back pain. Denies: Extremity Pain Skin: Denies: Rash, Wounds Neurological: Denies: Headache, Weakness, Numbness Physical Exam Vital Signs/Narrative: Vital Signs Temp Pulse Resp BP Pulse Ox 09/28/19 08:51 98.6 F 115 H 18 116/81 H 96 Inital Vital Signs reviewed: Yes General: Well nourished, Well developed, No Acute Distress Head: Normocephalic, Atraumatic Eyes: Perrl, EOMI ENT: Moist mucous membranes, No rhinorrhea Neck: Supple, Nontender Cardiovascular: Regular rate, Regular rhythm, No murmurs Respiratory: No distress, CTA bilaterally, Chest nontender Abdomen: Soft, Nontender, Nondistended, Normal bowel sounds Back: Normal Inspection, CVA tenderness Extremities: Nontender, No edema Skin: Normal color, No rash Neurological: Alert, Oriented x3, Cranial nerves II-XII grossly intact, Normal Strength, Normal Sensation Psychological: Normal affect, Normal Mood Diagnostic/Tx/Re-eval Abnormal Lab Results 09/28/19 09/28/19 09/28/19 09:15 09:15 10:10 WBC 8.7 RBC 5.00 Hgb 10.6 L Hct 37.3 MCV 74.6 L MCH 21.2 L MCHC 28.4 L RDW Std Deviation 45.1 H RDW Coeff of Vinod 17.2 H Plt Count 230 MPV 9.3 Immature Gran % (Auto) 0.300 Neut % (Auto) 80.3 H Lymph % (Auto) 11.1 L [place] % (Auto) 8.2 Eos % (Auto) 0.0 Baso % (Auto) 0.1 Absolute Neuts (auto) 7.0 Absolute Lymphs (auto) 0.96 Nucleated RBC % 0 Sodium 139 Potassium 4.2 Chloride 104 Carbon Dioxide 28.0 Anion Gap 7 BUN 11 Creatinine 0.88 Estim Creat Clear Calc 91.49 Est GFR (MDRD) Af Amer 100 Est GFR (MDRD) Non-Af 83 BUN/Creatinine Ratio 12.5 Glucose 110 H Calcium 8.6 Total Bilirubin 0.90 AST 28 ALT 39 Alkaline Phosphatase 111 Total Protein 8.4 H Albumin 3.7 Globulin 4.7 H Albumin/Globulin Ratio 0.8 L Urine Color Urine Clarity Urine pH Ur Specific [place] Urine Protein Urine Glucose (UA) Urine Ketones Urine Occult Blood Urine Nitrite Urine Bilirubin Urine Urobilinogen Ur Leukocyte Esterase Urine RBC Urine WBC Ur Squamous Epith Cells Urine Bacteria Urine Mucus Urine Test Negative 09/28/19 10:10 WBC RBC Hgb Hct MCV MCH MCHC RDW Std Deviation RDW Coeff of Vinod Plt Count MPV Immature Gran % (Auto) Neut % (Auto) Lymph % (Auto) [place] % (Auto) Eos % (Auto) Baso % (Auto) Absolute Neuts (auto) Absolute Lymphs (auto) Nucleated RBC % Sodium Potassium Chloride Carbon Dioxide Anion Gap BUN Creatinine Estim Creat Clear Calc Est GFR (MDRD) Af Amer Est GFR (MDRD) Non-Af BUN/Creatinine Ratio Glucose Calcium Total Bilirubin AST ALT Alkaline Phosphatase Total Protein Albumin Globulin Albumin/Globulin Ratio Urine Color Yellow Urine Clarity Cloudy Urine pH 5.0 Ur Specific [place] 1.015 Urine Protein 100 H Urine Glucose (UA) Normal Urine Ketones 15 H Urine Occult Blood 50 H Urine Nitrite Positive H Urine Bilirubin Negative Urine Urobilinogen Normal Ur Leukocyte Esterase 500 H Urine RBC 0 SEEN Urine WBC >100 SEEN Ur Squamous Epith Cells 0 SEEN Urine Bacteria 1+ Urine Mucus 0 SEEN Urine Test - Medical Decision Making The patient presents with right-sided flank pain and fever. She is also had nausea and vomiting. Metabolic work-up was pursued. Patient was given fluids, antiemetics, and Toradol. She was feeling improved. Screening labs were obtained. She has no leukocytosis. Renal function is normal. Urine does show evidence of infection. Culture was added. I do feel that she likely has pyelonephritis. The patient is treated with IV Rocephin and will be continued on Bactrim as an outpatient. She is comfortable with this plan of care and will be discharged home. Impression 1. Pyelonephritis ED Disposition - Plan for ED Patient: Instructions: ED Pyelonephritis Female Adult Prescriptions: Smz/Tmp Ds [Bactrim Ds] 1 tab PO BID #14 tab Prescription Printed Ondansetron [Zofran Odt] 4 mg PO Q8H PRN PRN #10 tab PRN Reason: Nausea Prescription Printed Referrals: Care Physician,No Primary [Primary Care Provider] -
[2019-09-28 09:23] LABS: Absolute Lymphocyte Count 0.96 X10^3/uL (0.83-4.51); Basophil# 0.01 X10^3/uL; Basophil% 0.1 % (0-1); Hematocrit 37.3 % (37-47); Hemoglobin 10.6 g/dL (12.0-15.0); Lymphocyte # 0.96 X10^3/ul (4.0); Lymphocyte % 11.1 % (19-41); Mean Corp Hgb Conc 28.4 g/dL (32-36); Mean Corpuscular Hgb 21.2 pg (27.0-32.0); Mean Corpuscular Volume 74.6 fL (81-99); Mean Platelet Vol. 9.3 fl (6.2-12.0); Monocyte# 0.71 X10^3/uL; Monocyte% 8.2 % (0-10); NRBC Flagged by Analyzer 0 % (0-5); Neutrophil # 6.95 X10^3/uL (2.7-7.7); Neutrophil % 80.3 % (47-70); Platelet Count 230 K/mm3 (150-450); RBC Distribution Width CV 17.2 % (11.6-14.6); RBC Distribution Width SD 45.1 fl (35.1-43.9); White Blood Count 8.7 K/mm3 (4.4-11.0)
[2019-09-28 09:30] VITALS: BP 116/81; PULSE 115; RESP 18; TEMP 37; O2SAT 96
[2019-09-28 09:42] LABS: ALB/GLOB Ratio 0.8 RATIO (0.9-2.4); AST(SGOT) 28 U/L (15-37); Alanine Aminotransfer ALT/SGPT 39 U/L (13-56); Albumin, Serum 3.7 g/dL (3.2-5.0); Alkaline Phosphatase 111 U/L (45-117); Anion Gap 7 (5-15); BUN 11 mg/dL (7-18); BUN/Creat Ratio 12.5 RATIO (10-20); Calcium,Total 8.6 mg/dL (8.5-10.1); Chloride 104 mmol/L (98-107); Creatinine, Serum 0.88 mg/dL (0.55-1.02); EST Glomerular Filtration Rate 83 mL/min (>60); Est Glom Filt Rate - Afr Amer 100 mL/min (>60); Estimated Creatinine Clearance 91.49 ml/min; Globulin 4.7 g/dL (2.2-4.2); Glucose 110 mg/dL (74-106); Potassium 4.2 mmol/L (3.5-5.1); Protein, Total 8.4 g/dL (6.4-8.2); Sodium Level 139 mmol/L (136-145)
[2019-09-28] MEDS: 0.9% Normal Saline 1,000 ML 1000 ML IV ×2 (09:44→11:08)
[2019-09-28] MEDS: Ondansetron 4 MG/2 ML Vial IV (09:46)
[2019-09-28] MEDS: Ketorolac 15 MG/ML Vial IV (09:46)
[2019-09-28 10:22] LABS: Mucous, Urine 0 SEEN /hpf (<or=2+); Red Blood Cells-Urine 0 SEEN /hpf (0-5); Squamous Epithelial Cells - UA 0 SEEN /hpf (5-10)
[2019-09-28 10:23] LABS: Color, Urine Yellow (Yellow); Glucose, Dipstick Normal (Normal); Ketone-Dipstick 15 mg/dl (Negative); Leukocyte Esterase-Dipstick 500 /ul (Negative); Nitrite-Dipstick Positive (Negative); Occult Blood-Urine 50 /ul (Negative); Protein-Dipstick 100 mg/dl (Negative); Specific Gravity, Urine 1.015 (1.002-1.030); Urine Bilirubin Dipstick Negative (Negative); Urine Clarity Cloudy (Clear); Urine Urobilinogen Normal (Normal)
[2019-09-28 10:26] LABS: Internal QC Validated? YES +Cl - CLEAR BKGD; Pregnancy, Urine Negative Negative
[2019-09-28 10:32] LABS: Bacteria 1+ /hpf (None Seen); White Blood Cells >100 SEEN /hpf (0-5)
[2019-09-28 10:45] VITALS: BP 96/55; PULSE 106; RESP 16; TEMP 36.8; O2SAT 98
[2019-09-28] MEDS: Acetaminophen 500 MG Tablet 1000 MG PO (11:06)
[2019-09-28] MEDS: Ceftriaxone 1 GM/50 ML BAG IV (11:08)
[2019-09-28 13:02] VITALS: BP 91/47; PULSE 96; RESP 16; TEMP 36.9; O2SAT 97
== END 2019-09-28 13:03 | disposition home or self-care (01) ==
LOC: ED 09:43
PROVIDERS: Emergency Provider Emergency Medicine
DX: N12 Tubulo-interstitial nephritis, not specified as acute or chronic (principal); Z87.891 Personal history of nicotine dependence
CPT/HCPCS: 80053; 81001; 81025; 85025; 87077; 87086; 87088; 87186; 96361; 96365; 96375; 99285; J7030; J2405

== ENCOUNTER 2021-04-05 14:51 | Emergency (ER) | payer MEDICAID, SELFPAY ==
[2021-04-05 14:52] VITALS: BP 101/75; PULSE 119; RESP 15; TEMP 36.4; O2SAT 98; BMI 25.2
--- NOTE | 2021-04-05 15:14 | EX.ED.DYSGE1 ---
HPI History of Present Illness Chief Complaint: Flank Pain Informant: patient Narrative Narrative: 25-year-old female presenting to the emergency department with vomiting back pain and urinary frequency. Symptoms started with her back hurting a couple days ago. This morning she states she has had a lot of vomiting and subjective fever. She notes a history of recurrent kidney infections but no history of kidney stones. [facility] Medical History (Updated 04/05/21 @ 17:[address] Ryan Rodriguez DO) Anxiety and depression Rh negative status during Home Medications levonorgestrel 20.1 mcg/24 hrs (6 yrs) 52 mg intrauterine device 1 device INTRAUTERINE ONCE 11/24/19 [History Last Taken Unknown] hydrocodone-acetaminophen 1 tab PO Q4H PRN PRN 2 Days #10 tablet 04/05/21 [Rx Last Taken Unknown] ondansetron 4 mg PO Q6H PRN PRN #15 tab 04/05/21 [Rx Last Taken Unknown] Allergy/AdvReac Type Severity Reaction Status Date / Time amoxicillin Allergy Hives Verified 04/05/21 14:52 Family History Grandmother Breast cancer Surgical History History of nasal surgery Social History number of children: 3 current occupational status: employed current occupation: [employer] Smoking Status: Never smoker alcohol intake: never substance use type: does not use caffeine: No what type of physical activity do you participate in: walking seatbelt use: always do you feel safe at home: Yes ROS ROS ED Constitutional Constitutional ED: Reports chills and fever(s); Denies weight loss Eyes Eyes: Denies change in vision or diplopia ENT ENT ED: Denies ear pain, rhinorrhea or sore throat Cardiovascular Cardiovascular: Denies chest pain, orthopnea, palpitations or racing heartbeat Respiratory/Chest Respiratory/Chest: Denies cough, dyspnea or orthopnea Gastrointestinal Gastrointestinal: Reports nausea and vomiting; Denies abdominal pain or diarrhea Genitourinary Genitourinary ED: Reports urinary frequency; Denies dysuria or hematuria Musculoskeletal Musculoskeletal: Reports back pain; Denies arthralgias or myalgias Integumentary Denies abscess or rash Neurologic Neurologic: Denies headache(s) or weakness Psychiatric Psychiatric: Denies anxiety, depression, suicidal ideation or suicidal thoughts Endocrine Endocrinology: Denies polydipsia, polyphagia or polyuria Allergic/Immunologic Allergic/Immunologic ED: Denies mouth swelling, tongue swelling or urticaria EXAM Physical Exam Const Vital Signs: 04/05/21 14:52 Temperature 97.6 F L Temperature Source Temporal Pulse Rate 119 H Respiratory Rate 15 Blood Pressure 101/75 Blood Pressure Mean 83 Pulse Ox 98 Oxygen Delivery Method Room Air Positive well nourished and well developed General Appearance ED: well developed HEENT Reports normocephalic, head/scalp atraumatic, TM's clear and moist mucous membranes Negative for trauma Tympanic Membrane ED: Yes TM's clear Eyes PERRL and EOMs intact bilaterally Neck no lymphadenopathy, supple and no JVD Resp normal respiratory effort and clear to auscultation bilaterally Cardio regular rate and no murmurs Rate: tachycardic GI normal to inspection, nondistended, normoactive bowel sounds and non-tender Palpation: soft Back/Spine normal ROM General Back: CVA tenderness bilateral Extremity normal to inspection General Extremety ED: Negative for edema General Extremity: Negative for edema Neuro oriented x3 and CN's II-XII intact bilaterally Sensorium / Orientation: alert Motor Exam: strength 5/5 throughout Psych mental status grossly normal Mood & Affect: Negative for depressed or tearful Skin no rashes or lesions noted and no wounds MDM MDM MDM Narrative Medical decision making narrative: White count is 3.6 count 193 with a hemoglobin 13.2. CMP is normal lipase 45. Urinalysis showed no overt infections did show 150 ketones. Patient received Toradol Zofran and IV fluids. I added on a COVID test and this was negative. Clinically the patient has a nonsurgical abdomen. Most of her pain is in the CVA region. I do not appreciate rashes in the urine is not infected. I write for her to have Zofran and some pain medication. Would recommend following up in 24 to 48 hours if continued symptoms return if worsening or any concerns Lab Data Attestation: I reviewed the patient's lab results. Labs: Laboratory Results - last 24 hr 04/05/21 04/05/21 04/05/21 15:39 15:40 15:40 WBC 3.6 L RBC 4.64 Hgb 13.2 Hct 39.6 MCV 85.3 MCH 28.4 MCHC 33.3 RDW Std Deviation 38.2 RDW Coeff of Vinod 12.3 Plt Count 193 MPV 9.4 Immature Gran % (Auto) 0.300 Neut % (Auto) 82.7 H Lymph % (Auto) 7.2 L [place] % (Auto) 9.2 Eos % (Auto) 0.0 Baso % (Auto) 0.6 Absolute Neuts (auto) 3.0 Absolute Lymphs (auto) 0.26 L Nucleated RBC % 0 Differential Comment SCANNED Diff Path Review May foll Sodium 138 Potassium 3.8 Chloride 106 Carbon Dioxide 26.0 Anion Gap 6 BUN 12 Creatinine 0.67 Estim Creat Clear Calc 113.49 Est GFR (MDRD) Af Amer 136 Est GFR (MDRD) Non-Af 112 BUN/Creatinine Ratio 18.0 Glucose 106 Calcium 8.7 Total Bilirubin 0.40 AST 17 ALT 26 Alkaline Phosphatase 99 Total Protein 8.0 Albumin 4.3 Globulin 3.7 Albumin/Globulin Ratio 1.2 Lipase 45 L Urine Color Yellow Urine Clarity Cloudy Urine pH 5.0 Ur Specific [place] 1.020 Urine Protein 15 H Urine Glucose (UA) Normal Urine Ketones 150 A* Urine Occult Blood Negative Urine Nitrite Negative Urine Bilirubin Negative Urine Urobilinogen Normal Ur Leukocyte Esterase Negative Urine RBC 0 SEEN Urine WBC 0-5 SEEN Ur Squamous Epith Cells 0 SEEN Urine Bacteria RARE Urine Mucus 0 SEEN Urine Test Negative Discharge Plan Triage Chief Complaint: Flank Pain ED Provider: Ryan Rodriguez Dx/Rx/DC Orders Clinical Impression: Acute flank pain, Vomiting Instructions: ED Flank Pain, Uncertain Cause Prescriptions: New hydrocodone-acetaminophen [hydrocodone-acetaminophen] 1 TABLET tablet 1 tab PO Q4H PRN PRN (Reason: Pain) 2 Days Qty: 10 RF: 0 ondansetron [ondansetron] 4 MG tablet 4 mg PO Q6H PRN PRN (Reason: Nausea) Qty: 15 RF: 0 No Action Liletta 20.1 mcg/24 hrs (6 yrs) 52 mg intrauterine device 1 device intrauterine ONCE RF: 0 Primary Care Provider: Care Physician,No Primary Referrals: Care Physician,No Primary [Primary Care Provider] - Activity Restrictions/Additional Instructions: Return to emergency in 24 to 48 hours if continued symptoms or earlier if changes. Disposition Disposition: Home, Self Care
[2021-04-05] MEDS: 0.9% Normal Saline 1,000 ML 1000 ML IV (15:44)
[2021-04-05 15:46] LABS: Mucous, Urine 0 SEEN /hpf (<or=2+); Red Blood Cells-Urine 0 SEEN /hpf (0-5); Squamous Epithelial Cells - UA 0 SEEN /hpf (5-10)
[2021-04-05] MEDS: Ketorolac 30 MG/ML Syringe IV (15:50)
[2021-04-05] MEDS: Ondansetron 4 MG/2 ML Vial IV (15:50)
[2021-04-05 15:59] LABS: Absolute Lymphocyte Count 0.26 X10^3/uL (0.83-4.51); Basophil# 0.02 X10^3/uL; Basophil% 0.6 % (0-1); Hematocrit 39.6 % (37-47); Hemoglobin 13.2 g/dL (12.0-15.0); Lymphocyte # 0.26 X10^3/ul (0.83-4.51); Lymphocyte % 7.2 % (19-41); Mean Corp Hgb Conc 33.3 g/dL (32-36); Mean Corpuscular Hgb 28.4 pg (27.0-32.0); Mean Corpuscular Volume 85.3 fL (81-99); Mean Platelet Vol. 9.4 fl (6.2-12.0); Monocyte# 0.33 X10^3/uL; Monocyte% 9.2 % (0-10); NRBC Flagged by Analyzer 0 % (0-5); Neutrophil # 2.98 X10^3/uL (2.7-7.7); Neutrophil % 82.7 % (47-70); POSITIVE DIFFERENTIAL YES; Platelet Count 193 K/mm3 (150-450); RBC Distribution Width CV 12.3 % (11.6-14.6); RBC Distribution Width SD 38.2 fl (35.1-43.9); Red Blood Count 4.64 M/mm3 (4.2-5.4); White Blood Count 3.6 K/mm3 (4.4-11.0)
[2021-04-05 16:00] LABS: Differential Indicated SCAN CRITERIA MET
[2021-04-05 16:00] LABS: Color, Urine Yellow (Yellow); Glucose, Dipstick Normal (Normal); Leukocyte Esterase-Dipstick Negative /ul (Negative); Nitrite-Dipstick Negative (Negative); Occult Blood-Urine Negative /ul (Negative); Protein-Dipstick 15 mg/dl (Negative); Urine Bilirubin Dipstick Negative (Negative); Urine Clarity Cloudy (Clear); Urine Urobilinogen Normal (Normal)
[2021-04-05 16:06] LABS: Internal QC Validated? YES +Cl - CLEAR BKGD; Ketone-Dipstick 150 mg/dl (Negative); Pregnancy, Urine Negative Negative
[2021-04-05 16:09] LABS: Bacteria RARE /hpf (None Seen); White Blood Cells 0-5 SEEN /hpf (0-5)
[2021-04-05 16:10] LABS: ALB/GLOB Ratio 1.2 RATIO (0.9-2.4); AST(SGOT) 17 U/L (15-37); Alanine Aminotransfer ALT/SGPT 26 U/L (13-56); Albumin, Serum 4.3 g/dL (3.2-5.0); Alkaline Phosphatase 99 U/L (45-117); Anion Gap 6 (5-15); BUN 12 mg/dL (7-18); Calcium,Total 8.7 mg/dL (8.5-10.1); Chloride 106 mmol/L (98-107); Creatinine, Serum 0.67 mg/dL (0.55-1.02); EST Glomerular Filtration Rate 112 mL/min (>60); Est Glom Filt Rate - Afr Amer 136 mL/min (>60); Estimated Creatinine Clearance 113.49 ml/min; Globulin 3.7 g/dL (2.2-4.2); Glucose 106 mg/dL (74-106); Lipase 45 U/L (73-393); Potassium 3.8 mmol/L (3.5-5.1); Sodium Level 138 mmol/L (136-145)
[2021-04-05 16:31] LABS: Differential Comment SCANNED
[2021-04-05 17:42] VITALS: PULSE 85; RESP 15; O2SAT 99
[2021-04-07 14:10] LABS: Pathologist Review Reviewed
== END 2021-04-05 17:43 | disposition home or self-care (01) ==
PROVIDERS: Emergency Provider Emergency Medicine; Visit Provider Emergency Medicine
DX: R10.9 Unspecified abdominal pain (principal); R11.10 Vomiting, unspecified; R35.0 Frequency of micturition; Z87.440 Personal history of urinary (tract) infections
CPT/HCPCS: 80053; 81001; 81025; 83690; 85025; 87426; 96361; 96374; 96375; 99283; J7030; A4216; J2405

== ENCOUNTER 2021-07-03 17:21 | Emergency (ER) | payer MEDICAID, SELFPAY ==
[2021-07-03 17:22] VITALS: BP 110/73; PULSE 119; RESP 16; TEMP 35.8; O2SAT 100; BMI 21.6
[2021-07-03 18:03] LABS: Bacteria 0 SEEN /hpf (None Seen); Mucous, Urine 0 SEEN /hpf (<or=2+)
[2021-07-03] MEDS: Ketorolac 15 MG/ML Vial IV (18:04)
[2021-07-03 18:08] LABS: Absolute Neutrophil Count 3.5 X10^3/uL (2.0-7.7); Basophil# 0.04 X10^3/uL; Basophil% 0.7 % (0-1); Eosinophil# 0.15 X10^3/uL; Eosinophils% 2.6 % (0-5); Hematocrit 41.6 % (37-47); Lymphocyte % 29.3 % (19-41); Mean Corp Hgb Conc 33.7 g/dL (32-36); Mean Corpuscular Hgb 28.7 pg (27.0-32.0); Mean Corpuscular Volume 85.2 fL (81-99); Mean Platelet Vol. 9.6 fl (6.2-12.0); Monocyte# 0.45 X10^3/uL; Monocyte% 7.7 % (0-10); NRBC Flagged by Analyzer 0 % (0-5); Neutrophil # 3.46 X10^3/uL (2.7-7.7); Neutrophil % 59.5 % (47-70); Platelet Count 250 K/mm3 (150-450); RBC Distribution Width SD 40.4 fl (35.1-43.9); Red Blood Count 4.88 M/mm3 (4.2-5.4); White Blood Count 5.8 K/mm3 (4.4-11.0)
[2021-07-03 18:08] LABS: Color, Urine Yellow (Yellow); Glucose, Dipstick Normal (Normal); Ketone-Dipstick Negative (Negative); Leukocyte Esterase-Dipstick 25 /ul (Negative); Nitrite-Dipstick Negative (Negative); Occult Blood-Urine 150 /ul (Negative); Protein-Dipstick Negative (Negative); Specific Gravity, Urine 1.015 (1.002-1.030); Urine Bilirubin Dipstick Negative (Negative); Urine Clarity Sl. Cloudy (Clear); Urine Urobilinogen 1 mg/dl (Normal)
--- NOTE | 2021-07-03 18:12 | ED.VIS.GI ---
HPI HPI - GI History of Present Illness Chief Complaint: Abd Pain Detail of Chief Complaint: Bilateral lower quadrant abdominal pain Informant: patient Abdominal Pain/Flank Pain Onset: Days (3 days ago and last week) Context: Sudden Onset Timing: Continuous and Waxes and wanes Quality: Dull Location: RLQ and LLQ Current Severity: Mild Maximum Severity: 8/10 Worsened by: Nothing Relieved by: Nothing Nausea/Vomiting/Emesis GI Symptom: Negative for Nausea and Vomiting Diarrhea/Melena/Hematochezia GI Symptom: Negative for Diarrhea, Melena and Hematochezia Associated Symptoms Associated Symptoms: Negative for Dysuria, Frequency and Hematuria LMP: 2 years ago Narrative Narrative: Patient is a 25-year-old female who presents with bilateral lower quadrant pain started 3 scope. She is seen by obstetrical tech last week and had discomfort according to his significant other. She was seen by the obstetrical tech to evaluate her control, Mirena. She was told that in proper position. She has no signs or symptoms of . She does report dyspareunia the past 3 days. She denies history of STI. She does have history of ovarian cyst 2 years ago. She denies history of endometriosis. She denies fever, chills night sweats. She does report decreased appetite. She states after consulting with her significant other that the pain is worse when she is upright and better when she is supine. She denies flank pain. She denies history of [id number] dialysis. Prior similar symptoms: No Recent Illness/Hospitalization: No PFSH PFSH Medical History Anxiety and depression Rh negative status during Home Medications naproxen 500 mg PO BID #14 tab 07/03/21 [Rx Last Taken Unknown] Allergy/AdvReac Type Severity Reaction Status Date / Time amoxicillin Allergy Hives Verified 07/03/21 17:25 Family History Grandmother Breast cancer Surgical History History of nasal surgery Social History number of children: 3 current occupational status: employed current occupation: [employer] Smoking Status: Never smoker alcohol intake: never substance use type: does not use caffeine: No what type of physical activity do you participate in: walking seatbelt use: always do you feel safe at home: Yes ROS ROS ED Constitutional Constitutional ED: Denies chills, fever(s), subjective, sweats or weight loss ENT ENT ED: Denies ear pain, rhinorrhea or sore throat Cardiovascular Cardiovascular: Denies chest pain, palpitations or racing heartbeat Respiratory/Chest Respiratory/Chest: Denies dyspnea or dyspnea on exertion Gastrointestinal Gastrointestinal: Reports abdominal pain; Denies constipation, diarrhea, melena, nausea or vomiting Genitourinary Genitourinary ED: Denies dysuria, hematuria or urinary frequency Musculoskeletal Musculoskeletal: Denies arthralgias, back pain, myalgias or neck pain Integumentary Denies abscess, Abrasions or rash Neurologic Neurologic: Denies headache(s) or weakness Endocrine Endocrinology: Denies polydipsia, polyphagia or polyuria EXAM Physical Exam Const Vital Signs: 07/03/21 17:22 Temperature 96.4 F L Temperature Source Temporal Pulse Rate 119 H Respiratory Rate 16 Blood Pressure 110/73 Blood Pressure Mean 85 Pulse Ox 100 Oxygen Delivery Method Room Air Positive well nourished and well developed General Appearance ED: well developed and NAD; Negative for pallor HEENT Reports moist mucous membranes HEENT Narrative: Nares patent. Posterior pharynx no erythema or exudate. Uvula midline. Patient tongue is pierced. normocephalic and atraumatic Eyes PERRL and EOMs intact bilaterally General Eye ED: Negative for pale conjunctiva or scleral icterus Neck no lymphadenopathy, supple and no JVD Resp normal respiratory effort and clear to auscultation bilaterally Cardio regular rate, regular rhythm, S1 normal heart sound, S2 normal heart sound and no murmurs GI non-distended and no masses Inspection: other Other Details: When I was speaking to the patient and nurse entered the room and areas that she complained of experiencing pain who no longer painful. Suspect she has very in significant pain if any at all. Auscultation: normoactive bowel sounds Palpation: soft Back/Spine no CVA tenderness Cervical Spine: Negative for cervical spine tenderness Thoracic Spine / Upper Back: Negative for thoracic spinal tenderness Lumbar Spine / Lower Back: Negative for lumbar spinal tenderness Extremity full ROM General Extremety ED: Negative for edema or tenderness General Extremity: Negative for edema Neuro CN's II-XII intact bilaterally Sensorium / Orientation: alert, oriented to person, oriented to place, oriented to time and orientation impaired Psych mental status grossly normal and thought process normal Skin no wounds General Skin Exam: Negative for jaundice or pallor Lesions: no lesions Rashes: no rashes MDM MDM MDM Narrative Medical decision making narrative: Bilateral lower abdominal pain with a benign abdomen. Will perform screening blood work to determine if any radiologic imaging is needed or required. Patient states her pain is an 8 and requested pain medicine. Patient was treated with IV Toradol. Lab Data Attestation: I reviewed the patient's lab results. Lab results narrative: CBC, H&H and differential are unremarkable. Basic metabolic panel is normal. UA is unremarkable. Patient was informed the cause of her pain is unknown. She asked if I had any concerns for perforation. I informed her of checking for the strings does not cause perforation. And since his started after she was seen by the obstetrical tech and has been intermittent recommend follow up with the obstetrical tech. Patient reports no improvement after IV Toradol in my professional medical opinion patient has a benign abdominal exam. Labs: Laboratory Results - last 24 hr 07/03/21 07/03/21 07/03/21 17:50 17:55 17:55 WBC 5.8 RBC 4.88 Hgb 14.0 Hct 41.6 MCV 85.2 MCH 28.7 MCHC 33.7 RDW Std Deviation 40.4 RDW Coeff of Vinod 13.0 Plt Count 250 MPV 9.6 Immature Gran % (Auto) 0.200 Neut % (Auto) 59.5 Lymph % (Auto) 29.3 [place] % (Auto) 7.7 Eos % (Auto) 2.6 Baso % (Auto) 0.7 Absolute Neuts (auto) 3.5 Absolute Lymphs (auto) 1.70 Nucleated RBC % 0 Sodium 139 Potassium 4.0 Chloride 105 Carbon Dioxide 32.0 Anion Gap 2 L BUN 8 Creatinine 0.74 Estim Creat Clear Calc 102.76 Est GFR (MDRD) Af Amer 121 Est GFR (MDRD) Non-Af 100 BUN/Creatinine Ratio 10.8 Glucose 84 Calcium 9.1 Urine Color Yellow Urine Clarity Sl. Cloudy Urine pH 8.0 Ur Specific [place] 1.015 Urine Protein Negative Urine Glucose (UA) Normal Urine Ketones Negative Urine Occult Blood 150 H Urine Nitrite Negative Urine Bilirubin Negative Urine Urobilinogen 1 H Ur Leukocyte Esterase 25 H Urine RBC 0-5 SEEN Urine WBC 0-5 SEEN Ur Squamous Epith Cells 0-5 SEEN Amorphous Sediment 1+ Urine Bacteria 0 SEEN Urine Mucus 0 SEEN Discharge Plan Triage Chief Complaint: Abd Pain ED Provider: Alessandro Sofia Dx/Rx/DC Orders Clinical Impression: Bilateral lower abdominal pain Instructions: ED Abdominal Pain Unkn Cause Fem Prescriptions: New naproxen 500 MG tablet 500 mg PO BID Qty: 14 RF: 0 Primary Care Provider: Care Physician,No Primary Referrals: Care Physician,No Primary [Primary Care Provider] - Doctor,Your [STAFF PHYSICIAN] - 1-2 Days if not improving Disposition Disposition: Home, Self Care
[2021-07-03 18:15] LABS: Squamous Epithelial Cells - UA 0-5 SEEN /hpf (5-10)
[2021-07-03 18:16] LABS: Amorphous Sediment 1+; Red Blood Cells-Urine 0-5 SEEN /hpf (0-5); White Blood Cells 0-5 SEEN /hpf (0-5)
[2021-07-03 18:21] LABS: Anion Gap 2 (5-15); BUN 8 mg/dL (7-18); BUN/Creat Ratio 10.8 RATIO (10-20); Calcium,Total 9.1 mg/dL (8.5-10.1); Chloride 105 mmol/L (98-107); Creatinine, Serum 0.74 mg/dL (0.55-1.02); EST Glomerular Filtration Rate 100 mL/min (>60); Est Glom Filt Rate - Afr Amer 121 mL/min (>60); Estimated Creatinine Clearance 102.76 ml/min; Glucose 84 mg/dL (74-106); Sodium Level 139 mmol/L (136-145)
[2021-07-03 19:29] VITALS: BP 108/74; PULSE 84; RESP 17; O2SAT 98
== END 2021-07-03 19:29 | disposition home or self-care (01) ==
PROVIDERS: Emergency Provider Emergency Medicine; Visit Provider Emergency Medicine
DX: R10.32 Left lower quadrant pain (principal); R11.2 Nausea with vomiting, unspecified; R10.31 Right lower quadrant pain; R19.7 Diarrhea, unspecified
CPT/HCPCS: 80048; 81001; 85025; 96374; 99283; A4216

== ENCOUNTER → 2021-09-12 | Outpatient (CLI) | payer MEDICAID, SELFPAY | END | disposition home or self-care (01) | LOC: LABSPEC 16:23 | PROVIDERS: Visit Provider Obstetrics & Gynecology | DX: R30.9 Painful micturition, unspecified (principal) | CPT/HCPCS: 87077; 87086; 87088; 87186 ==

== ENCOUNTER 2021-10-24 18:02 | Emergency (ER) | payer MEDICAID, SELFPAY ==
[2021-10-24 18:04] VITALS: BP 110/97; PULSE 136; RESP 18; TEMP 37.2; O2SAT 100; BMI 24.9
[2021-10-24] MEDS: 0.9% Normal Saline 1,000 ML 999 ML IV (19:50)
[2021-10-24] MEDS: Metoclopramide 10 MG/2 ML Vial 5 MG IV (19:50)
[2021-10-24] MEDS: DiphenhydrAMINE 50 MG/ML Syringe 25 MG IV (19:51)
[2021-10-24] MEDS: Ketorolac 30 MG/ML Syringe IV (19:51)
--- NOTE | 2021-10-24 20:55 | EDS_ITS ---
HPI History of Present Illness Chief Complaint: General Illness Informant: patient Onset/Context/Timing Onset: Today Context: Gradual Onset (After work-up this morning) Timing: Continuous Quality: Throbbing Location: Left frontal and retro-orbital Current Severity: Severe Maximum Severity: Severe Worsened by: Light Relieved by: Nothing, tried Tylenol Associated Symptoms Associated Symptoms: Nausea, blurry vision which caused her to cross over to oncoming traffic Narrative Narrative: Patient was having a bad migraine all day today, to the point where she was driving and at 1 point she crossed over the double yellow line onto oncoming traffic, which scared her friend and she brought her over to the ER for evaluation and treatment. She states for the last year or so she has been getting migraines about once per week. She is on no preventative medications. She has not seen neurology for this. This is a similar headache is more persistent and severe than usual but without any new features. [facility] Medical History Anxiety and depression Rh negative status during Home Medications levonorgestrel 20 mcg/24 hours (7 yrs) 52 mg intrauterine device (Mirena) 1 device intrauterine ONCE 09/12/21 [History Last Taken Unknown] Allergy/AdvReac Type Severity Reaction Status Date / Time amoxicillin Allergy Hives Verified 10/24/21 18:03 Family History Grandmother Breast cancer Surgical History History of nasal surgery Social History number of children: 3 current occupational status: employed current occupation: [employer] Smoking Status: Never smoker alcohol intake: never substance use type: does not use caffeine: No what type of physical activity do you participate in: walking seatbelt use: always do you feel safe at home: Yes ROS ROS ED Constitutional Constitutional ED: Denies chills or fever(s) Eyes Eyes: Reports blurry vision; Denies diplopia ENT ENT ED: Denies ear pain or sore throat Cardiovascular Cardiovascular: Denies chest pain or palpitations Respiratory/Chest Respiratory/Chest: Denies cough or dyspnea Gastrointestinal Gastrointestinal: Reports nausea and vomiting; Denies abdominal pain or diarrhea Genitourinary Genitourinary ED: Denies dysuria or urinary frequency Musculoskeletal Musculoskeletal: Denies back pain or myalgias Integumentary Denies abscess or rash Neurologic Neurologic: Reports headache(s); Denies paresthesias or weakness EXAM Physical Exam Const Vital Signs: 10/24/21 18:04 Temperature 98.9 F Temperature Source Temporal Pulse Rate 136 H Respiratory Rate 18 Blood Pressure 110/97 H Blood Pressure Mean 101 Pulse Ox 100 Oxygen Delivery Method Room Air HEENT Reports normocephalic and moist mucous membranes atraumatic Eyes PERRL, EOMs intact bilaterally and conjunctivae normal Eyes Narrative: photophobia Neck no lymphadenopathy, supple and no meningeal signs Resp normal respiratory effort and clear to auscultation bilaterally GI non-tender and non-distended Palpation: soft Extremity normal to inspection and full ROM Neuro oriented x3 and CN's II-XII intact bilaterally Sensorium / Orientation: awake and alert Speech: speech normal Gait (Neuro): normal gait Motor Exam: strength 5/5 throughout Psych mental status grossly normal Skin Lesions: no lesions Rashes: no rashes MDM MDM MDM Narrative Medical decision making narrative: Patient was given IV fluids, along with Reglan, Toradol, Benadryl. On reevaluation she feels a lot better and her headache is completely resolved. I do not think she needs advanced imaging, discharged home with appropriate discharge instructions, and advised to follow-up with her doctor. Discharge Plan Triage Chief Complaint: General Illness ED Provider: Remington Toney Dx/Rx/DC Orders Clinical Impression: Headache, migraine Instructions: ED, Migraine (Classical) Prescriptions: No Action Mirena 20 mcg/24 hours (7 yrs) 52 mg intrauterine device 1 device intrauterine ONCE Rx Instructions: as a single dose Primary Care Provider: Care Physician,No Primary Referrals: Care Physician,No Primary [Primary Care Provider] - Doctor,Your [NON-STAFF] - 3-5 Days if not improving Disposition Disposition: Home, Self Care
== END 2021-10-24 21:42 | disposition home or self-care (01) ==
PROVIDERS: Emergency Provider Emergency Medicine; Visit Provider Emergency Medicine
DX: G43.909 Migraine, unspecified, not intractable, without status migrainosus (principal)
CPT/HCPCS: 99282; J7030; A4216

== ENCOUNTER → 2022-03-11 | Outpatient (CLI) | payer MEDICAID, SELFPAY ==
[2022-03-11 12:39] LABS: HIV - WCH Non-Reactive (Nonreactive); Hepatitis C Antibody Non-Reactive (Nonreactive); Syphilis Antibodies Non-reactive
[2022-03-12 16:23] LABS: HSV 1 IgG 6.43 index (0.00-0.90); HSV 2 IgG < 0.91 index (0.00-0.90)
[2022-03-13 06:08] LABS: Chlamydia By Nucleic Acid AMP Negative (Negative)
[2022-03-13 10:42] LABS: Gonococcus By Nucleic Acid AMP Negative (Negative)
== END | disposition home or self-care (01) ==
PROVIDERS: Referring Provider Nurse Practitioner Women's Health; Visit Provider Nurse Practitioner Women's Health
DX: Z20.2 Contact with and (suspected) exposure to infections with a predominantly sexual mode of transmission (principal)
CPT/HCPCS: 36415; 86695; 86696; 86703; 86780; 86803; 87491; 87591

== ENCOUNTER → 2022-05-06 | Outpatient (CLI) | payer MEDICAID, SELFPAY ==
--- NOTE | 2022-05-06 14:39 | US_ITS ---
STUDY: ULTRASOUND OF THE FEMALE PELVIS - COMPLETE REASON FOR EXAM: Female, 26 years old. AUB LMP: 05/05/2022. TECHNIQUE: Transabdominal and Transvaginal TECHNICAL QUALITY: Adequate. COMPARISON: None. FINDINGS: The uterus is anteverted and is in a midline position. The uterus measures 7.9 cm x 4.8 cm x 3.9 cm. Normal uterine cervix. The endometrium measures 3.4 mm in thickness, and is hyperechoic. There is no demonstrated endometrial mass. There is no demonstrated myometrial mass. I.U.D. - The patient does have an I.U.D. The right ovary is visualized. The right ovary measures 4.3 cm x 3.9 cmx 4.4 cm. Within the right ovary, there is a 4.3 cm x 3.9 signed by 3.4 cm solid slightly echogenic nodule. This may represent a dermoid. Correlation with CT scan is recommended. There is no visualized right adnexal mass or complex lesion. There is normal arterial and normal venous vascularity. The left ovary is visualized. The left ovary measures 2.4 cm x 1.9 cm x 1.6 cm. There is no left ovarian cyst or ovarian mass. There is no visualized left adnexal mass or complex lesion. There is normal arterial and normal venous vascularity. There is no fluid in the cul-de-sac. The pre void volume of the bladder was 135 ml. US/Pelvic (Non ) IMPRESSION: Questionable dermoid in the right ovary as described. Correlation with a CT scan is recommended. Electronically Signed: Luciano Peters MD at 10:23 EST ,
== END | disposition home or self-care (01) ==
PROVIDERS: Referring Provider Nurse Practitioner Women's Health; Visit Provider Nurse Practitioner Women's Health
DX: N93.9 Abnormal uterine and vaginal bleeding, unspecified (principal); Z86.718 Personal history of other venous thrombosis and embolism; Z30.431 Encounter for routine checking of intrauterine contraceptive device
CPT/HCPCS: 76830; 76856

== ENCOUNTER → 2022-05-21 | Outpatient (CLI) | payer MEDICAID, SELFPAY ==
--- NOTE | 2022-05-21 14:44 | CT_ITS ---
EXAM: CT ABDOMEN AND PELVIS WITH INTRAVENOUS CONTRAST CLINICAL INDICATION: pelvic pain/abnormal uterine bleeding TECHNIQUE: Helically acquired images were obtained of the abdomen and pelvis with intravenous contrast. This CT exam was performed using one or more of the following dose reduction techniques: automated exposure control, adjustment of the mA and/or kV according to patient size, and/or use of iterative reconstruction technique. This report was created using [employer] report generation technology. CONTRAST: IV 75mL [id number]-300, Oral contrast-Readicat COMPARISON: Ultrasound from 05/06/2022 FINDINGS: LOWER THORAX: Unremarkable. Lung bases are clear. No cardiomegaly. No significant pericardial effusion. ABDOMEN: LIVER: Unremarkable. Homogeneous. No focal mass. GALLBLADDER AND BILE DUCTS: Unremarkable. No calcified gallstones. No gallbladder distention or wall edema. No intra- or extrahepatic biliary ductal dilation. PANCREAS: Unremarkable. No focal cystic or solid mass. SPLEEN: Unremarkable. Normal size without focal cystic or solid mass. ADRENALS: Unremarkable. No nodules. KIDNEYS AND URETERS: Unremarkable. Normal renal size and position. No hydronephrosis. STOMACH AND BOWEL: Unremarkable. No stomach or bowel distention. No focal inflammatory change. PELVIS: APPENDIX: The appendix is normal. BLADDER: Unremarkable. REPRODUCTIVE: Predominantly fat density lesion in the right adnexa is noted measuring 3.8 x 3.4 cm. IUD in the uterus. 2.4 cm left ovarian cyst. ABDOMEN and PELVIS: INTRAPERITONEAL SPACE: Unremarkable. No ascites or other fluid collection. No free air. BONES/JOINTS: Unremarkable. No suspicious lytic or blastic abnormality. SOFT TISSUES: Unremarkable. No discrete abdominal or pelvic wall hernia. VASCULATURE: Unremarkable. Abdominal aorta is non-dilated. LYMPH NODES: Unremarkable. No enlarged lymph nodes. CT/Abdomen/Pelvis WITH Contrast IMPRESSION: Predominantly fat density lesion in the right adnexa is noted measuring 3.8 x 3.4 cm. Findings consistent with an ovarian dermoid. Electronically Signed: Unruly Giron MD at 4:54 EST ,
== END | disposition home or self-care (01) ==
LOC: CT 14:42
PROVIDERS: Visit Provider Nurse Practitioner Women's Health
DX: N93.9 Abnormal uterine and vaginal bleeding, unspecified (principal)
CPT/HCPCS: 74177; Q9967; A4216

== ENCOUNTER 2022-06-30 10:50 | Day surgery (SDC) | payer MEDICAID, SELFPAY ==
[2022-06-25 13:34] LABS: Hemoglobin 13.4 g/dL (12.0-15.0); Mean Corp Hgb Conc 33.5 g/dL (32-36); Mean Corpuscular Hgb 29.3 pg (27.0-32.0); Mean Corpuscular Volume 87.5 fL (81-99); Mean Platelet Vol. 9.8 fl (6.2-12.0); Platelet Count 269 K/mm3 (150-450); RBC Distribution Width CV 12.9 % (11.6-14.6); RBC Distribution Width SD 41.4 fl (35.1-43.9); Red Blood Count 4.57 M/mm3 (4.2-5.4); White Blood Count 4.8 K/mm3 (4.4-11.0)
--- NOTE | 2022-06-29 17:50 | HP.PCM_ITS ---
History and Physical Date of Admission: 06/30/22 MR#: [id number] Acct: [id number] Name:CHRISTEL ARROYO Rep #: [id number] : 1995 ? ? Provider: Dr. Brii Parkinson MD Age/Sex:? 26/F ? ? Location: [facility] [place] Status: Signed Intake Vital Signs ? 06/02/2307:08 06/02/2307:08 Height 5 ft 4 in 5 ft 4 in Weight: 133 lb 6 oz ? BMI 22.8 ? BP 109/78 ? Intake Visit Reasons:?surgery consult Is patient in pain?: No Allergies amoxicillin Allergy (Verified 06/01/22 08:08) Hives Medications levonorgestrel 21 mcg/24 hours (8 yrs) 52 mg intrauterine device (Mirena) 1 device intrauterine ONCE 09/12/21 [History Confirmed 06/01/22] Is last menstrual period known: No Post menopausal: No Patient : No : No [facility] Medical History? Anxiety and depression Rh negative status during Surgical History? History of nasal surgery Family History? Grandmother Breast cancer Social History? number of children:? 3 current occupational status:? employed current occupation:? [employer] Smoking Status:? Never smoker alcohol intake:? never substance use type:? does not use caffeine:? No what type of physical activity do you participate in:? walking seatbelt use:? always do you feel safe at home:? Yes HPI surgery consult Details: CHRISTEL AZUL is a 26 year old who presents for consultation for ovarian cyst.? she has been having increasing right lower pelvic pain worsening over the last fe weeks,? it is intermittent and not severe enough to completely limit activities.? she has irreuglar bleeding on the mirena.? she dneies any bowel complaints.? she denies any fevers or nausea. she is not having dyspareunia. she had an US and CT scan that showed a 4 cm cyst that has a dermoid appearance. History ? ? ? 5 ? Elective abortions ? Hx Para ? ? ? 4 ? Spontaneous abortions ? Hx # Term Pregnancies ? ? ? 1 ?D Ectopic pregnancies ? Hx # Pregnancies ? ? ? 4 ? Multiple births ? # of living children ? ? ? 4 Past Pregnancies Del. Date Name GA/Weeks Outcome Route Bth Weight Infant Gen Labor Lgth Anesthesia Del Locatn Provider FOB Unknown Stillborn? 20 still ? Male ? ? [place] ? Amrik Unknown [place] 40 live - full term 5 lb Male 1.5 hr ? [facility] ? Amrik Unknown ? [facility]- ? Amrik Unknown [place] 34 live - 5 lbs Male 2 hrs ? [facility] - ? Amrik Unknown 2018 Frances[place] 34 live - ? Female ? ? [place] ? ? 08/18/19 Aleks 36 live - ? Male ? ? [facility] Dr. Brii Polo Delivery Date:?? Last Updated by: Cece Mckeon ? ? ? RH Disease Delivery Date:?? Last Updated by: Adrienne Sue ? ? ? Rh Delivery Date: 08/18/19? Last Updated by: Rhonda Cary ? ? ? Rh disease ROS Const Constitutional: Denies fatigue, weight gain or weight loss ENT ENT: Reports system reviewed and no additional complaints, except as documented Cardio Card: Denies chest pain Resp Resp: Denies cough or dyspnea GI GI: Reports as per HPI; Denies abdominal pain, constipation, nausea or vomiting : Denies nipple discharge, urinary frequency, urinary incontinence, urinary hesitancy, urinary urgency, vaginal discharge, vaginal dryness, vaginal odor or vaginal pruritus Musc Musc: Denies arthralgias, back pain or muscle weakness Skin Skin/Breast: Denies alopecia, change in hair, dry skin, breast mass, breast pain, breast skin changes or nipple discharge Neuro Neuro: Reports system reviewed and no additional complaints, except as documented Psych Psych: Reports system reviewed and no additional complaints, except as documented Endo Endo: Denies cold intolerance, excessive sweating, heat intolerance or polydipsia Wally/Lymph Hematologic/Lymphatic: Denies easy bleeding, Denies easy bruising and Denies lymphadenopathy Exam Const General: cooperative, healthy appearing, comfortable and no acute distress Orientation: alert [facility] [place] Head: normal to inspection and normocephalic Ears: hearing grossly normal bilaterally and external ears normal Nose: external nose normal and nares normal Face and sinus: normal facial exam Neck Neck: normal visual inspection and no lymphadenopathy Thyroid: thyroid normal Chest Chest palpation & inspection: normal inspection of the chest Resp Effort & Inspection: normal respiratory effort Auscultation: clear to auscultation bilaterally Cardio Rate: regular rate Rhythm: regular rhythm Heart Sounds: S1 normal and S2 normal GI Inspection: normal to inspection and non-distended Palpation: soft and no hepatosplenomegaly Musc Other: gross motor intact no deficits, full bilateral strength Skin General: no rashes or lesions noted Neuro General: patient alert, patient awake, moves all extremities and no focal motor deficits Motor: muscle tone normal throughout Extrem General: normal to inspection and no pedal edema Psych Appearance: grossly normal Mental Status: mental status grossly normal Affect: normal affect Speech and Movement: speech and movement normal Coding Level of Care Code Off vis,est,level 4 Diagnoses History of DVT of lower extremity? Z86.718 Dermoid cyst of right ovary? D27.0 Assessment and Plan Assessment and Plan (1) History of DVT of lower extremity: ?Status:?Acute ?Comment: states 3rd , upper thigh. Was on blood thinners. caprini risk score of 4 recommend lovenox preop and SCDs only, none needed postop. (2) Dermoid cyst of right ovary: ?Status:?Acute ?Comment: plan laparoscopic right ovarian cystectomy. Plan After discussing the patient's diagnosis and treatment plan options, patient wishes to proceed with surgical management.? I have discussed with the patient the risks, benefits, and alternatives of the procedure which include but are not limited to risks of anesthesia, bleeding, infection, possible damage to bowel, bladder, or surrounding vasculature which could lead to additional surgery to evaluate any complications.? Patient agrees to procedure and wishes to proceed.? ACOG/uptodate references given for additional information regarding procedure.? ? discussed risk of possible oophorectomy.
[2022-06-30] VITALS (8 sets, daily range): BP systolic 84–108; BP diastolic 48–86; PULSE 64–102; RESP 16–18; TEMP 36.1–36.9; O2SAT 97–100; BMI 23.1
[2022-06-30 11:18] LABS: Internal QC Validated? YES +Cl - CLEAR BKGD; Pregnancy, Urine Negative Negative
[2022-06-30] MEDS: Enoxaparin 40 MG/0.4 ML Syringe SC (11:22)
[2022-06-30] MEDS: Lactated Ringers 1,000 ML 15 ML IV (11:22)
--- NOTE | 2022-06-30 12:35 | OV_PTH ---
PATIENT: CHRISTEL PERSAUD LOC: [facility] [place] U#:[id number] AGE/SX: 26/F ROOM: RE06/30/[address]: Dr. Brii Parkinson MD : 1995 BED: DIS: 06/30/2022 SPEC #: [id number] RECD: 06/30/22 14:09 STATUS: WILFRED REMarco #: [id number] HAMLET: 06/30/22 12:[address]: Brii Parkinson DEPT: SURGICAL PATHOLOGY RECD BY: Wilmar Jaimes ENTERED: 07/01/22 11:03 SP TYPE: OVARY OTHR DR: Dr. Milton Moya MD No Primary Care Phys Tissues: Right ovary Procedures: Surgery Specimen Level V HEADER OPERATION: Laparoscopic ovarian cystectomy PRE-OP DIAGNOSIS: Dermoid cyst of right ovary TISSUE SUBMITTED: Right ovarian dermoid cyst MICROSCOPIC DIAGNOSIS Right ovarian cyst, ovarian cystectomy: Mature cystic teratoma (dermoid cyst). AM:garrison 07/02/2022 MICROSCOPIC DESCRIPTION Slides are reviewed. GROSS DESCRIPTION Received in fixative is one container labeled with the patient's name and designated right ovarian dermoid cyst. The specimen consists of a previously, partially opened cyst measuring 4.5 x 3.0 x 1.2 cm and weighing 0.3 gm. The outer surface is smooth and inked black. The cyst contains multiple hair. A focal solid area is noted measuring 1.5 cm in greatest dimension. The cyst wall measures 0.1 cm in greatest dimension. Also present in the container are multiple fragments of hair and sebum-like material (cyst contents) measuring in aggregate 4.0 x 3.0 x 1.0 cm. Miter Cutter sections are submitted in three cassettes. / SJ:garrison 07/01/2022 TC:1 CPT: 07233
--- NOTE | 2022-06-30 12:52 | PCM.OPRPT ---
Problems Associated Problem List Diagnoses (1) History of DVT of lower extremity: (2) Dermoid cyst of right ovary: Report of Operation Date of Procedure: 06/30/22 Pre-Operative Diagnosis: ovarian cyst Post-Operative Diagnosis: same Surgery/Procedure Performed:: laparoscopic ovarian cystectomy Description of Surgical Findings:: right enlarged ovary with cyst Surgeon: Brii Parkinson clinical documentation improvement specialist: Desire Bermudez Type of Anesthesia: General and Local Special Medications: Floseal Specimen's removed: right ovarian cyst Drains: none Estimated Blood Loss (mL): 50 Fluids Replaced: crystalloid Description of Procedure: Patient was taken in the operating room and was placed under general anesthesia was prepped and draped in normal sterile fashion in the dorsal lithotomy position. Bladder was drained of clear urine and SCDs were on preoperatively. Uterus was sounded and a uterine manipulator was placed after dilating. Attention was then paid to the abdominal portion of the procedure and the umbilicus was elevated with towel clamps and injected with Marcaine and after a 5 mm incision was made and the Veress needle was entered into the abdomen confirmed to be intra-abdominal with a low opening pressure of less than 5 mmHg. Abdomen was insufflated with CO2 gas and a 5 mm optical trocar was placed under direct visualization. A 5 mm port was placed in the right and left lower quadrants x2. Uterus was well visualized and left ovary and tube were noted to be within normal limits in the right ovary was noted to be significantly enlarged. A longitudinal incision was made using the monopolar scissors and a dermoid cyst encountered which was teased out both with traction countertraction and with blunt dissection. After removal it was placed into a 5 mm port bag and removed through the left lower quadrant port without complication and minimal spillage. Copious irrigation of the cul-de-sac was performed. Hemostasis of the ovary was seen but Floseal was still placed over the entire ovarian bed of the remaining normal ovary. Liver and upper abdomen were visualized notably within normal limits and no other gross abnormalities were seen in the abdomen. All instruments removed from the abdomen after gas was desufflated. Port sites were closed with 3-0 Monocryl Steri's and op sites were applied. All instruments removed from the vagina and patient was awoken and taken recovery in stable condition. Grafts/Implants Used: none Complications none Admit VTE Documentation VTE Present on Admission: No VTE Mechan Device Prophylaxis: SCD's Multi Select Codes Urinary/Genital Urinary/Genital CPT Codes: 49277 Laproscopic ablation endometriosis
--- NOTE | 2022-06-30 12:57 | DCINST_ITS ---
Discharge Instructions Diet Discharge Diet: No restrictions Activity Discharge Activity: Return to Normal Activity, May Drive (when pain free) and May Shower May resume sexual activity in: 1 week Weight Bearing Status: Full weight bearing Lifting Restrictions: 30 lbs for 2 weeks Dressing / Incision Call your doctor if your incision/area has: Continuous Slow Oozing, Sudden Increased Bleeding, Increased Pain/ Swelling, Increased Redness and Foul Smelling Discharge Call your doctor if you observe: Fever of 101 or Higher, Using more than 1 pad per hour, Shortness of breath, Chest pain and Uncontrolled pain Suture Line Care: Avoid Pulling/Pushing and Avoid Pinching/Bending Remove Dressing in: 1 week (if present) Cleanse incision/area with: Soap & Water and Keep Dressing Clean & Dry Follow Up Care Please Follow Up With: Brii Parkinson MD When: Call to make an appointment with your doctor for a postop visit in 2 weeks Test Results: Test results from this visit will be discussed in further detail at your follow- up appointment, if applicable. Discharge Plan Admission Attending Provider: Brii Parkinson Primary Care Provider: Care Physician[facility] Primary Consulting Providers: Milton Moya Discharge Orders/Prescriptions Prescriptions: New oxycodone-acetaminophen [Percocet] 5-325 mg tablet 1 tab PO Q6H PRN (Reason: pain) 7 Days Qty: 20 0RF naproxen [naproxen] 500 mg tablet 500 mg PO BID PRN PRN (Reason: Pain) Qty: 30 1RF No Action Mirena 20 mcg/24 hours (7 yrs) 52 mg intrauterine device 1 device intrauterine ONCE Rx Instructions: as a single dose Referrals / Follow Up: [facility] Primary [Primary Care Provider] - Disposition Disposition (needs filled in before D/C Order can be placed): Home, Self Care
[2022-06-30] MEDS: Bupivacaine 0.25% 30 ML Vial (13:15)
[2022-06-30] MEDS: HYDROcodone Bitartrate/Apap 5/325 Tablet PO (15:32)
== END 2022-06-30 16:00 | disposition home or self-care (01) ==
LOC: SDC 10:50 → AC 10:50
PROVIDERS: Anesthesiology; Referring Provider Obstetrics & Gynecology; Visit Provider Obstetrics & Gynecology
PROC: (CPT 58661; principal; 2022-06-30 12:20)
DX: D27.0 Benign neoplasm of right ovary (principal); N83.8 Other noninflammatory disorders of ovary, fallopian tube and broad ligament; N85.2 Hypertrophy of uterus; Z86.718 Personal history of other venous thrombosis and embolism; Z87.891 Personal history of nicotine dependence
CPT/HCPCS: 58662; 00840; 88305; 36415; 81025; 85027; 86850; 86870; 86900; 86901; 88307; J7120; J2405

== ENCOUNTER → 2022-12-17 | Outpatient (CLI) | payer MEDICAID, SELFPAY ==
--- NOTE | 2022-12-17 12:53 | US_ITS ---
INDICATION: pelvic pain -- IUD placement EXAMINATION: Ultrasound US Pelvis Non OB Complete With Transvaginal Imaging TECHNIQUE: Transabdominal and transvaginal pelvic ultrasound was performed. Grayscale, spectral waveform, and color flow Doppler evaluation of the adnexa. COMPARISON: FINDINGS: UTERUS: Anteverted. The uterus measures 8.5 x 5.5 x 4.0 cm. There is no uterine mass. The endometrial stripe measures 2 mm in AP diameter with an IUD noted in place. Mild endometrial fluid. Nabothian cysts. RIGHT OVARY: 4.5 x 3.2 x 3.3 cm. There is a complex 2.8 cm lesion. There is normal arterial inflow and venous outflow present in the right ovary. LEFT OVARY: 2.5 x 2.4 x 1.6 cm. Non-enlarged, normal echogenicity. There is normal arterial inflow and venous outflow present in the left ovary. FREE FLUID: None. US/Pelvic w/ Transvaginal IMPRESSION: Complex right ovarian lesion. Mild endometrial fluid. IUD in place. Nabothian cysts. Electronically Signed: Gigi Ko DO at 17:45 EDT Reading Location ID and State: [facility] / [place] Tel [phone], Service support ,
[2022-12-17 14:48] LABS: Prolactin 5.1 ng/mL
[2022-12-17 14:49] LABS: hCG Titer Quant., Serum < 1 mIU/mL (1-3)
== END | disposition home or self-care (01) ==
PROVIDERS: Obstetrics & Gynecology; Referring Provider Registered Nurse; Visit Provider Registered Nurse
DX: R10.2 Pelvic and perineal pain (principal)
CPT/HCPCS: 36415; 76830; 76856; 84146; 84702

== ENCOUNTER → 2023-02-04 | Outpatient (CLI) | payer MEDICAID, SELFPAY ==
--- NOTE | 2023-02-04 09:14 | US_ITS ---
STUDY: ULTRASOUND OF THE FEMALE PELVIS - COMPLETE REASON FOR EXAM: Female, 27 years old. Pelvic pain LMP: 3 months ago. TECHNIQUE: Transvaginal TECHNICAL QUALITY: Adequate. COMPARISON: Comparison is made with prior study dated December 17, 2022. FINDINGS: The uterus is anteverted and is in a midline position. The uterus measures 8.7 cm x 5.3 cm x 3.7 cm. There is a Nabothian cyst of the cervix. The endometrium measures 2.6 mm in thickness, and is hyperechoic. There is no demonstrated endometrial mass. There is no demonstrated myometrial mass. I.U.D. - The patient does have an I.U.D. The right ovary is visualized. The right ovary measures 3.3 cm x 3.3 cm x 3.1 cm. There is a 2.5 cm x 2.3 cm x 2.2 centimeters complex cyst in the right ovary. This is slightly smaller as compared to prior study. There is no visualized right adnexal mass or complex lesion. There is normal arterial and normal venous vascularity. The left ovary is visualized. The left ovary measures 2.9 cm x 1.5 cm x 1.5 cm. There is no left ovarian cyst or ovarian mass. There is no visualized left adnexal mass or complex lesion. There is normal arterial and normal venous vascularity. There is no fluid in the cul-de-sac. US/Transvaginal Non- IMPRESSION: Persistent 2.5 cm x 2.3 cm x 2.2 Shine complex cyst in the right ovary. Electronically Signed: Luciano Peters MD at 10:38 EST ,
== END | disposition home or self-care (01) ==
LOC: US 09:13
PROVIDERS: Referring Provider Obstetrics & Gynecology; Visit Provider Obstetrics & Gynecology
DX: R10.2 Pelvic and perineal pain (principal)
CPT/HCPCS: 76830

== ENCOUNTER → 2023-05-20 | Outpatient (CLI) | payer MEDICAID, SELFPAY ==
--- NOTE | 2023-05-20 14:15 | US_ITS ---
EXAM: US PELVIS TRANSABDOMINAL LIMITED AND TRANSVAGINAL CLINICAL INDICATION: Pelvic and perineal pain -- IUD placement TECHNIQUE: Transabdominal (limited) and transvaginal pelvic ultrasound was performed with grayscale and color Doppler imaging. Transvaginal imaging was used for better evaluation of the endometrium and adnexa. COMPARISON: February 04, 2023, there was well-positioned IUD in persistent 2.5 cm x 2.3 cm x 2.2 cm complex cyst in right ovary compared to December 17, 2022. FINDINGS: UTERUS/CERVIX: 8.4 cm x 3.7 cm x 5.6 cm. There is shadowing from intrauterine IUD which appears adequately positioned. Trace fluid of roughly 4 mm thickness by 1 cm in length distending the fundal endometrial cavity. Anteverted. There is no uterine mass. Normal endometrial stripe thickness, anterior and posterior endometrial margins are 2.1 mm thickness respectively. RIGHT OVARY: 3.1 cm x 2.0 cm x 4.9 cm overall size with hypoechoic internal area complex cystic lesion of 2.1 cm x 2.4 cm x 1.8 cm with hypoechoic to intermediate level echoes and at least one nonvascular thin echogenic internal septation, similar appearance compared to February 04, 2023. It was previously 2.5 cm x 2.2 cm x 2.3 cm. Non-enlarged, normal echogenicity. Blood flow is present in the right ovary. LEFT OVARY: 2.5 cm x 1.7 cm x 2.4 cm. Non-enlarged, normal echogenicity. Blood flow is present in the left ovary. FREE FLUID: None. OTHER: There are prominent intrapelvic vessels and bilateral adnexal regions. BLADDER: Unremarkable as visualized. Wall is normal thickness for degree of distention. Calculated bladder volume 92 cc on the transabdominal exam. US/Pelvic (Non ) IMPRESSION: Well-positioned IUD. Trace fluid focally distending the fundal endometrial cavity. No free intrapelvic fluid. Slightly smaller measurement of a moderately complex right ovarian 2.4 cm maximum diameter cystic lesion compared to January 2023. Possibly atypical endometrioma. Electronically Signed: Emperatriz Quintana MD at 23:18 EST ,
== END | disposition home or self-care (01) ==
LOC: US 14:14
PROVIDERS: Referring Provider Obstetrics & Gynecology; Visit Provider Obstetrics & Gynecology
DX: Z30.9 Encounter for contraceptive management, unspecified (principal); R10.2 Pelvic and perineal pain
CPT/HCPCS: 76830; 76856

== ENCOUNTER 2023-09-20 19:37 | Emergency (ER) | payer MEDICAID, SELFPAY ==
[2023-09-20 19:37] VITALS: BP 123/95; PULSE 88; RESP 16; TEMP 36.1; O2SAT 99; BMI 24.0
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
[2023-09-20] MEDS: 0.9% Normal Saline (1000mL) 1,000 ML 999 ML IV (21:10)
[2023-09-20] MEDS: Ondansetron 4 MG/2 ML Vial IV ×2 (21:10→22:43)
--- NOTE | 2023-09-20 21:15 | CT_ITS ---
STUDY: CT BRAIN WITHOUT CONTRAST REASON FOR EXAM: Female, 27 years old. ANXIETY WITH N/V RADIATION DOSAGE (If Supplied By Facility): CTDIvol = ( 44.99 ) mGy, DLP = ( 779.24 ) mGycm TECHNIQUE: Transaxial CT imaging of the brain was performed without administration of intravenous contrast material. Individualized dose optimization techniques were used for this CT. COMPARISON: No relevant priors. FINDINGS: Focal gas is noted within the right facial deep soft tissue. Normal calvarium. Normal size ventricles and extra-axial spaces for the patient''s age. Normal white matter tracts of the cerebral hemispheres. Normal basal ganglia and thalami. Normal brainstem. Normal cerebellum. There is no intracranial hemorrhage. There are no findings of an acute ischemic infarction. Right maxillary sinus mucosal thickening of the lateral wall fracture noted. CT/Brain/Head without Contrast IMPRESSION: No acute intracranial pathology of the brain. Right maxillary sinus lateral wall fracture. Electronically Signed: Gigi Ko DO at 22:09 EDT ,
[2023-09-20 21:24] LABS: Bacteria 0 SEEN /hpf (None Seen); Mucous, Urine 0 SEEN /hpf (<or=2+); Red Blood Cells-Urine 0 SEEN /hpf (0-5)
[2023-09-20 21:26] LABS: Color, Urine Yellow (Yellow); Glucose, Dipstick Normal (Normal); Ketone-Dipstick 50 mg/dl (Negative); Leukocyte Esterase-Dipstick 25 /ul (Negative); Nitrite-Dipstick Negative (Negative); Occult Blood-Urine 10 /ul (Negative); Protein-Dipstick 30 mg/dl (Negative); Specific Gravity, Urine 1.025 (1.002-1.030); Urine Bilirubin Dipstick Negative (Negative); Urine Clarity Cloudy (Clear); Urine Urobilinogen 1 mg/dl (Normal)
[2023-09-20 21:26] LABS: Absolute Lymphocyte Count 2.18 X10^3/uL (0.83-4.51); Basophil# 0.05 X10^3/uL; Basophil% 0.6 % (0-1); Eosinophil# 0.08 X10^3/uL; Hematocrit 42.3 % (37-47); Hemoglobin 14.4 g/dL (12.0-15.0); Lymphocyte # 2.18 X10^3/ul (0.83-4.51); Lymphocyte % 27.5 % (19-41); Mean Corpuscular Hgb 28.9 pg (27.0-32.0); Mean Corpuscular Volume 84.8 fL (81-99); Mean Platelet Vol. 9.4 fl (6.2-12.0); Monocyte# 0.55 X10^3/uL; Monocyte% 6.9 % (0-10); NRBC Flagged by Analyzer 0 % (0-5); Neutrophil # 5.04 X10^3/uL (2.7-7.7); Neutrophil % 63.7 % (47-70); Platelet Count 321 K/mm3 (150-450); RBC Distribution Width CV 11.9 % (11.6-14.6); RBC Distribution Width SD 36.6 fl (35.1-43.9); Red Blood Count 4.99 M/mm3 (4.2-5.4); White Blood Count 7.9 K/mm3 (4.4-11.0)
[2023-09-20 21:37] VITALS: PULSE 70; RESP 18; O2SAT 97
[2023-09-20 21:39] LABS: Internal QC Validated? YES +Cl - CLEAR BKGD; Pregnancy, Serum, hCG Quali. NEGATIVE Negative
[2023-09-20 21:49] LABS: ALB/GLOB Ratio 1.2 RATIO (0.9-2.4); AST(SGOT) 10 U/L (15-37); Alanine Aminotransfer ALT/SGPT 22 U/L (13-56); Albumin, Serum 4.5 g/dL (3.2-5.0); Alkaline Phosphatase 76 U/L (45-117); Anion Gap 6 (5-15); BUN 10 mg/dL (7-18); BUN/Creat Ratio 13.8 RATIO (10-20); Calcium,Total 9.6 mg/dL (8.5-10.1); Chloride 102 mmol/L (98-107); Creatinine, Serum 0.73 mg/dL (0.55-1.02); EST Glomerular Filtration Rate 100 mL/min (>60); Est Glom Filt Rate - Afr Amer 121 mL/min (>60); Estimated Creatinine Clearance 98.19 ml/min; Globulin 3.7 g/dL (2.2-4.2); Glucose 91 mg/dL (74-106); Lipase 22 U/L (13-75); Potassium 3.4 mmol/L (3.5-5.1); Protein, Total 8.2 g/dL (6.4-8.2); Sodium Level 138 mmol/L (136-145)
[2023-09-20 22:21] LABS: Squamous Epithelial Cells - UA 10-25 SEEN /hpf (5-10); White Blood Cells 5-10 SEEN /hpf (0-5)
[2023-09-20] MEDS: Ketorolac 30 MG/ML Syringe IV (22:42)
[2023-09-20] MEDS: LORazepam 2 MG/ML Syringe 1 MG IV (22:42)
[2023-09-20 22:45] VITALS: BP 111/61; PULSE 74; RESP 16; TEMP 36.2; O2SAT 100
== END 2023-09-20 22:56 | disposition home or self-care (01) ==
PROVIDERS: Emergency Provider Emergency Medicine; Visit Provider Emergency Medicine
DX: R11.2 Nausea with vomiting, unspecified (principal); F41.9 Anxiety disorder, unspecified; R51.9 Headache, unspecified
CPT/HCPCS: 70450; 80053; 81001; 83690; 84703; 85025; 96361; 96374; 96375; 99284; J7030; A4216; J2405

== ENCOUNTER → 2023-11-01 | Outpatient (CLI) | payer MEDICAID, SELFPAY ==
[2023-11-03 20:08] LABS: Chlamydia By Nucleic Acid AMP Negative (Negative); Gonococcus By Nucleic Acid AMP Negative (Negative)
[2023-11-07 13:06] LABS: HPV APTIMA, High Risk Negative (Negative)
== END | disposition home or self-care (01) ==
PROVIDERS: Referring Provider Nurse Practitioner Women's Health; Visit Provider Nurse Practitioner Women's Health
DX: Z12.4 Encounter for screening for malignant neoplasm of cervix (principal); Z20.2 Contact with and (suspected) exposure to infections with a predominantly sexual mode of transmission
CPT/HCPCS: 87491; 87591; 87624; 88175; G0145

== ENCOUNTER 2023-12-05 10:43 | Emergency (ER) | payer MEDICAID, SELFPAY ==
[2023-12-05 10:45] VITALS: BP 127/94; PULSE 140; RESP 22; TEMP 36.5; O2SAT 93; BMI 19.6
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
[2023-12-05] MEDS: 0.9% Normal Saline (500mL Bag) 500 ML 1000 ML IV (12:15)
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
[2023-12-05] MEDS: Morphine 4 MG/ML Syringe IV (12:16)
[2023-12-05] MEDS: Ondansetron 4 MG/2 ML Vial IV (12:16)
[2023-12-05 12:32] LABS: Absolute Lymphocyte Count 1.08 X10^3/uL (0.83-4.51); Basophil# 0.03 X10^3/uL; Basophil% 0.3 % (0-1); Hematocrit 39.4 % (37-47); Hemoglobin 13.5 g/dL (12.0-15.0); Lymphocyte # 1.08 X10^3/ul (0.83-4.51); Lymphocyte % 11.3 % (19-41); Mean Corp Hgb Conc 34.3 g/dL (32-36); Mean Corpuscular Hgb 29.4 pg (27.0-32.0); Mean Corpuscular Volume 85.8 fL (81-99); Mean Platelet Vol. 9.2 fl (6.2-12.0); Monocyte# 0.47 X10^3/uL; Monocyte% 4.9 % (0-10); NRBC Flagged by Analyzer 0 % (0-5); Neutrophil # 7.97 X10^3/uL (2.7-7.7); Neutrophil % 83.4 % (47-70); Platelet Count 259 K/mm3 (150-450); RBC Distribution Width CV 11.9 % (11.6-14.6); RBC Distribution Width SD 37.2 fl (35.1-43.9); Red Blood Count 4.59 M/mm3 (4.2-5.4); White Blood Count 9.6 K/mm3 (4.4-11.0)
[2023-12-05 12:44] VITALS: BP 97/57; PULSE 100; RESP 19
[2023-12-05 12:54] LABS: ALB/GLOB Ratio 1.3 RATIO (0.9-2.4); AST(SGOT) 14 U/L (15-37); Alanine Aminotransfer ALT/SGPT 21 U/L (13-56); Albumin, Serum 4.1 g/dL (3.2-5.0); Alkaline Phosphatase 60 U/L (45-117); Anion Gap 4 (5-15); BUN 7 mg/dL (7-18); BUN/Creat Ratio 12.8 RATIO (10-20); Calcium,Total 8.9 mg/dL (8.5-10.1); Chloride 107 mmol/L (98-107); Creatinine, Serum 0.55 mg/dL (0.55-1.02); EST Glomerular Filtration Rate 139 mL/min (>60); Est Glom Filt Rate - Afr Amer 168 mL/min (>60); Estimated Creatinine Clearance 122.78 ml/min; Globulin 3.2 g/dL (2.2-4.2); Glucose 100 mg/dL (74-106); Lipase 22 U/L (13-75); Potassium 3.6 mmol/L (3.5-5.1); Protein, Total 7.3 g/dL (6.4-8.2); Sodium Level 138 mmol/L (136-145); Troponin-I HS 192 pg/mL (3.0-54.0)
[2023-12-05 13:07] LABS: Internal QC Validated? YES +Cl - CLEAR BKGD; Pregnancy, Urine Negative Negative
[2023-12-05 13:13] LABS: Color, Urine Yellow (Yellow); Glucose, Dipstick Normal (Normal); Ketone-Dipstick 50 mg/dl (Negative); Leukocyte Esterase-Dipstick 25 /ul (Negative); Nitrite-Dipstick Negative (Negative); Occult Blood-Urine Negative /ul (Negative); Protein-Dipstick 15 mg/dl (Negative); Specific Gravity, Urine 1.015 (1.002-1.030); Urine Bilirubin Dipstick Negative (Negative); Urine Clarity Clear (Clear); Urine Urobilinogen Normal (Normal)
[2023-12-05 13:46] LABS: Bacteria 1+ /hpf (None Seen); Mucous, Urine 1+ /hpf (<or=2+); Red Blood Cells-Urine 0-5 SEEN /hpf (0-5); Squamous Epithelial Cells - UA 0-5 SEEN /hpf (5-10); White Blood Cells 5-10 SEEN /hpf (0-5)
[2023-12-05 14:07] VITALS: BP 92/58; PULSE 87; RESP 14; TEMP 36.6; O2SAT 96
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
--- NOTE | 2023-12-05 15:51 | NURSING ---
CINTHIA LOYA DR MCKEON NURSE TO NURSE [phone]
--- NOTE | 2023-12-05 15:56 | NURSING ---
CINTHIA LOYA DR MCKEON NURSE TO NURSE [phone]
[2023-12-05 15:58] VITALS: BP 121/80; PULSE 69; RESP 19; TEMP 36.6; O2SAT 97
[2023-12-05 16:00] VITALS: BP 121/80; PULSE 102; RESP 18; O2SAT 98
--- NOTE | 2023-12-05 16:14 | NURSING ---
1534 CALLED KODY, ETA IS 90 MIN
--- NOTE | 2023-12-05 16:23 | ED.RN ---
REPORT CALLED TO GAGE VOSS AT [facility]
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
== END 2023-12-05 17:24 | disposition short-term general hospital (02) ==
PROVIDERS: Emergency Provider Surgery; Visit Provider Surgery
DX: T74.11XA Adult physical abuse, confirmed, initial encounter (principal); S26.11XA Contusion of heart without hemopericardium, initial encounter; H57.12 Ocular pain, left eye; Y07.031 Male partner, former, perpetrator of maltreatment and neglect; T71.193A Asphyxiation due to mechanical threat to breathing due to other causes, assault, initial encounter; Y04.8XXA Assault by other bodily force, initial encounter
CPT/HCPCS: 70486; 70496; 70498; 71260; 72125; 74177; 80053; 81001; 81025; 83690; 84484; 85025; 93005; 96361; 96374; 96375; 99284; J7030; Q9967; A4216; J2405

== ENCOUNTER → 2024-03-13 | Outpatient (CLI) | payer MEDICAID, SELFPAY ==
--- NOTE | 2024-03-13 15:17 | US_ITS ---
EXAM: US PELVIS TRANSABDOMINAL AND TRANSVAGINAL, COMPLETE CLINICAL INDICATION: Right ovarian cyst TECHNIQUE: Transabdominal and transvaginal pelvic ultrasound was performed with grayscale and color Doppler imaging. Transvaginal imaging was used for better evaluation of the endometrium and adnexa. COMPARISON: Pelvic ultrasound from 05/20/2023 FINDINGS: UTERUS/CERVIX: Uterus: 8.9 x 6.2 x 3.9 cm. Endometrium: 3 mm. Anteverted. There is no uterine mass. RIGHT OVARY: 4.6 x 3.8 x 2.7 cm, with a simple cyst measuring 3.8 x 3.0 x 1.5 cm. Blood flow is present in the right ovary. LEFT OVARY: 2.7 x 1.9 x 0.9 cm. Blood flow is present in the left ovary. FREE FLUID: None. BLADDER: No filling defects identified in the bladder. US/Pelvic w/ Transvaginal IMPRESSION: 1. Resolution of the complex right ovarian cyst described on the May 20, 2023 exam. 2. Simple right ovarian cyst measuring 3.8 cm. SRU Consensus Conference guidelines (Lassiter, et. al. Radiology 2019;293:359-371) suggest that this follicle or simple cyst is almost certainly benign and no follow-up of this cyst is necessary. Electronically Signed: Unruly Giron MD at 0:21 EST ,
== END | disposition home or self-care (01) ==
LOC: US 15:14
PROVIDERS: Referring Provider Obstetrics & Gynecology; Visit Provider Obstetrics & Gynecology
DX: N83.201 Unspecified ovarian cyst, right side (principal)
CPT/HCPCS: 76830; 76856

== ENCOUNTER 2024-03-28 09:59 | Day surgery (SDC) | payer MEDICAID, SELFPAY ==
[2024-03-28] VITALS (11 sets, daily range): BP systolic 86–103; BP diastolic 48–74; PULSE 68–100; RESP 16–20; TEMP 36.1–37.1; O2SAT 94–100; BMI 24.1
[2024-03-28] MEDS: 0.9% Normal Saline (1000mL) 1,000 ML 15 ML IV (10:44)
[2024-03-28] MEDS: Enoxaparin 40 MG/0.4 ML Syringe SC (10:46)
[2024-03-28 10:54] LABS: Internal QC Validated? YES +Cl - CLEAR BKGD; Pregnancy, Urine Negative Negative
[2024-03-28 10:55] LABS: Hematocrit 41.5 % (37-47); Hemoglobin 13.8 g/dL (12.0-15.0); Mean Corp Hgb Conc 33.3 g/dL (32-36); Mean Corpuscular Hgb 28.8 pg (27.0-32.0); Mean Corpuscular Volume 86.6 fL (81-99); Mean Platelet Vol. 9.3 fl (6.2-12.0); Platelet Count 263 K/mm3 (150-450); RBC Distribution Width CV 12.5 % (11.6-14.6); RBC Distribution Width SD 39.5 fl (35.1-43.9); Red Blood Count 4.79 M/mm3 (4.2-5.4)
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
--- NOTE | 2024-03-28 12:20 | OV_PTH ---
PATIENT: CHRISTEL PERSAUD LOC: [facility] [place] U#:[id number] AGE/SX: 28/F ROOM: RE03/28/[address]: Dr. Brii Parkinson MD : 1995 BED: DIS: 03/28/2024 SPEC #: [id number] RECD: 03/28/24 17:17 STATUS: WILFRED RICH #: [id number] HAMLET: 03/28/24 12:[address]: Brii Parkinson DEPT: SURGICAL PATHOLOGY RECD BY: Wilmar Jaimes ENTERED: 03/29/24 09:02 SP TYPE: OVARY OTHR DR: No Primary Care Phys Tissues: Ovary, NOS Procedures: Surgery Specimen Level IV HEADER OPERATION: Laparoscopic bilateral salpingectomy, right oophorectomy PRE-OP DIAGNOSIS: Right ovarian cyst TISSUE SUBMITTED: Bilateral fallopian tubes and right ovary MICROSCOPIC DIAGNOSIS Right Ovary and Bilateral Fallopian Tubes, Resection: 1. Right ovary with multiple follicular and corpus luteum cysts 2. Completely transected fallopian tubes 3. [place] Cell Nest on right fallopian tube JS, 03/30/2024 MICROSCOPIC DESCRIPTION Slides are reviewed. GROSS DESCRIPTION Received in fixative is one container labeled with the patient's name and designated bilateral fallopian tubes and right ovary. The specimen consists of a fallopian tube identified as left fallopian tube and a fallopian tube and ovary identified as right fallopian tube and ovary. The left fallopian tube measures 5.0 cm in length and 0.6 cm in diameter. Fimbrial end is identified. Sections reveal unremarkable cut surfaces. Right fallopian tube is similar in appearance as to left and measures 5.5cm in length and 0.5cm in diameter. No tuboovarian adhesions are noted. A previously partially ruptured soft to cystic ovary measures 4.0 x 2.5 x 2.0cm. Sections reveal multiple cysts and largest cyst measures 2.0cm in greatest dimension. Also present in the container is a detached piece of brownish soft tissue, most likely ruptured cyst contents measuring in aggregate 2.5 x 1.5 x 0.5cm. No papillations are identified in the cyst Class C Truck Driver sections are submitted in seven cassettes. 1- left fallopian tube, 2- right fallopian tube, 3-7- right ovary (cassette 7 contains the detached pieces of tissue). / SANTHOSH: 03/29/2024 TC:4 CPT: 89969 x2
[2024-03-28] MEDS: Bupivacaine 0.25% 30 ML Vial (14:40)
--- NOTE | 2024-03-28 15:08 | OP.PCM_ITS ---
Problems Associated Problem List Diagnoses (1) Right ovarian cyst: (2) History of DVT of lower extremity: (3) Pelvic congestion syndrome: Multi Select Codes Urinary/Genital Urinary/Genital CPT Codes: 71236 Laproscopic BS/O Operative Report (Standard) Operative Information Date of Procedure: 03/28/24 Pre-Operative Diagnosis: See problem list Post-Operative Diagnosis: Same Surgery/Procedure Performed: Laparoscopic bilateral salpingectomy right oophorectomy enrollment services dean: Yes Diamond Merchant: Hector Irwin Tasks completed by orthopedic assistant: Opening & closing, Removing tissue (left tube with ligasure under direct supervision.) and Trocar Type of Anesthesia: General RN Documented Start/Stop Times: Operation Date: 03/28/24 12:20 Case Time Into Pre-Op 03/28/24 10:07 Out of Pre-Op 03/28/24 13:56 Anesthesia Start 03/28/24 14:00 Into Room 03/28/24 14:00 Procedure Start 03/28/24 14:25 Procedure End 03/28/24 15:11 Anesthesia End 03/28/24 15:18 Out of Room 03/28/24 15:18 Into Recovery 03/28/24 15:20 Into Phase II Recovery 03/28/24 16:11 Out of Recovery 03/28/24 16:11 Out of Phase II 03/28/24 17:23 Procedure Start Time: 14:25 Procedure Stop Time: 13:11 Select all DRAINS/GRAFTS/IMPLANTS that apply: None (clear urine at beginning of procedure) Estimated Blood Loss: 25 Specimen collected: Yes Description of specimen(s) removed: bilateral tubes and right ovary Description of surgery: Patient was placed under general anesthesia was prepped and draped in the normal sterile fashion in the dorsolithotomy position. Uterine manipulator was placed and umbilicus was injected with lidocaine and a 5 mm incision made at the umbilicus and Veress needle entering into the abdomen with a low opening pressure of less than 5 mmHg. Abdomen insufflated with CO2 gas and a 5 mm port placed under direct visualization. Right and left lower quadrant 5 mm ports placed under direct visualization through previous incisions. Pelvis well- visualized and significant right ovarian adhesions noted which were taken down sharply and bluntly with hydrodissection and monopolar energy. The LigaSure device was also used. After freeing up of the ovary on that side holes were drilled into the ovary to evaluate the cystic content of the appearance of the ovary and sebaceous material was removed but no clear cystic border was noted therefore the decision was made to remove that ovary for suspected recurrent t eratoma on that side. The IP ligament on the right side was transected with the LigaSure device down to the level of the utero-ovarian ligament which the mesosalpinx and utero-ovarian ligament were transected with the LigaSure device without complication. The left fallopian tube was elevated and the mesosalpinx transected with the LigaSure device down to the level of the interstitial portion of the fallopian tube that was connected to the uterus. This was transected with the LigaSure device without complication. Hemostasis was noted but a raw appearance was noted to the right ovarian fossa where adhesions were taken down so Hemoblast was placed over the area. All instruments removed from the abdomen after the abdomen was desufflated of gas and uterine manipulator removed. Port sites were closed with 4-0 Monocryl and the patient was awoken and taken recovery in stable condition. 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
--- NOTE | 2024-03-28 15:09 | PCM.DC ---
Discharge Instructions Diet Discharge Diet: No restrictions DC O2, CPAP, BIPAP needs Home O2 Discharge instructions: No Dressing / Incision Discharge Activity: Return to Normal Activity, May Not Drive ( while taking narcotic pain meds, when pain free), May Shower and May Take a Tub Bath (in 7 days) May resume sexual activity in: 1 week Weight Bearing Status: Full weight bearing Dressing / Incision Call your doctor if your incision/area has: Continuous Slow Oozing, Sudden Increased Bleeding, Increased Pain/ Swelling, Increased Redness and Foul Smelling Discharge Call your doctor if you observe: Fever of 101 or Higher, Using more than 1 pad per hour, Shortness of breath, Chest pain and Uncontrolled pain Suture Line Care: Avoid Pulling/Pushing and Avoid Pinching/Bending Remove Dressing in: 1 week (if present) Cleanse incision/area with: Soap & Water and Keep Dressing Clean & Dry Follow Up Care When: Call to make an appointment with your doctor for a fu/incision check in 1-2 weeks. Test Results: Test results from this visit will be discussed in further detail at your follow-up appointment, if applicable. Discharge Plan Admission Attending Provider: Brii Parkinson Primary Care Provider: [facility] PhysicianWinter Primary Instructions Print Language: Kosovan Discharge Orders/Prescriptions Prescriptions: New oxycodone-acetaminophen [Percocet] 5-325 mg tablet 1 tab PO Q6H PRN (Reason: pain) 7 Days Qty: 10 0RF naproxen 500 mg tablet 500 mg PO BID PRN PRN (Reason: Pain) Qty: 30 1RF No Action norethindrone (contraceptive) [Esperanza] 0.35 mg tablet 0.35 mg PO QDAY Qty: 84 4RF Rx Instructions: start day 1 of menstrual cycle cyclobenzaprine 5 mg tablet 5 mg PO TID PRN (Reason: muscle spasm) elagolix 150 mg tablet 150 mg PO DAILY Qty: 30 12RF Referrals / Follow Up: Care PhysicianWinter Primary [Primary Care Provider] - Disposition Disposition (needs filled in before D/C Order can be placed): Home, Self Care
--- NOTE | 2024-03-28 15:22 | PCM.POST.ANE ---
Anesthesia: Postop Eval I Current Vital Signs Temperature: 97 F Pulse Rate: 96 Blood Pressure: 86/74 Respiratory Rate: 20 Pulse Ox: 98 Oxygen Delivery Method: Room Air Assessment Airway patent: Yes Spontaneous unlabored respirations: Yes Mental status: Awake nausea: No Vomiting: No Anesthesia Complication: No Fluid Hydration Crystalloid volume administer (ml): 1,200 Total IV fluid infused: 1,200 Progress Note Anesthesia document: Postop Eval 1 completed: Yes
[2024-03-28] MEDS: HYDROcodone Bitartrate/Apap 5/325 Tablet PO (16:42)
--- NOTE | 2024-03-28 17:07 | POSTOPAN2_ITS ---
Anesthesia Postop Eval I Sum Postop Eval Completion status Anesthesia document: Postop Eval 1 completed: Yes Anesthesia Postop Eval I Summary Anesthesia Postop Eval I Summary: Anesthesia Postop Eval I: Assessment Summary Airway patent Yes 03/28/24 15:23 SHIRT IRONER SUPERVISOR.[email or web address] Spontaneous unlabored Yes 03/28/24 15:23 SHIRT IRONER SUPERVISOR.[email or web address] respirations Mental status Awake 03/28/24 15:23 SHIRT IRONER SUPERVISOR.[email or web address] nausea No 03/28/24 15:23 SHIRT IRONER SUPERVISOR.[email or web address] Vomiting No 03/28/24 15:23 SHIRT IRONER SUPERVISOR.[email or web address] Anesthesia Postop Eval I: Fluid Summary Crystalloid volume administer 1,200 03/28/24 15:23 SHIRT IRONER SUPERVISOR.[email or web address] (ml) Colloids volume administered ( ml) Blood Product volume administered (ml) Total IV fluid infused 1,200 03/28/24 15:23 SHIRT IRONER SUPERVISOR.[email or web address] Anesthesia Postop Eval I: Summary Notes Anesthesia Complication No 03/28/24 15:23 SHIRT IRONER SUPERVISOR.[email or web address] Anesthesia Complication Comment: Post-operative progress note Anesthesia: Postop Eval II Evaluation Mental status: Awake and Calm Pain Level: 1 nausea: No Vomiting: No Complications Anesthesia Complication: No
--- NOTE | 2024-03-28 17:07 | PCM.POSTANE2 ---
Anesthesia Postop Eval I Sum Postop Eval Completion status Anesthesia document: Postop Eval 1 completed: Yes Anesthesia Postop Eval I Summary Anesthesia Postop Eval I Summary: Anesthesia Postop Eval I: Assessment Summary Airway patent Yes 03/28/24 15:23 INSULATION BOARD COATER OPERATOR.[email or web address] Spontaneous unlabored Yes 03/28/24 15:23 INSULATION BOARD COATER OPERATOR.JSWI respirations Mental status Awake 03/28/24 15:23 INSULATION BOARD COATER OPERATOR.[email or web address] nausea No 03/28/24 15:23 INSULATION BOARD COATER OPERATOR.[email or web address] Vomiting No 03/28/24 15:23 INSULATION BOARD COATER OPERATOR.[email or web address] Anesthesia Postop Eval I: Fluid Summary Crystalloid volume administer 1,200 03/28/24 15:23 INSULATION BOARD COATER OPERATOR.[email or web address] (ml) Colloids volume administered ( ml) Blood Product volume administered (ml) Total IV fluid infused 1,200 03/28/24 15:23 INSULATION BOARD COATER OPERATOR.[email or web address] Anesthesia Postop Eval I: Summary Notes Anesthesia Complication No 03/28/24 15:23 INSULATION BOARD COATER OPERATOR.[email or web address] Anesthesia Complication Comment: Post-operative progress note Anesthesia: Postop Eval II Evaluation Mental status: Awake and Calm Pain Level: 1 nausea: No Vomiting: No Complications Anesthesia Complication: No
== END 2024-03-28 17:23 | disposition home or self-care (01) ==
LOC: SDC 10:01 → AC 10:02
PROVIDERS: Referring Provider Obstetrics & Gynecology; Visit Provider Obstetrics & Gynecology
PROC: (CPT 58661; principal; 2024-03-28 12:05)
DX: N83.11 Corpus luteum cyst of right ovary (principal); N73.6 Female pelvic peritoneal adhesions (postinfective); Z86.718 Personal history of other venous thrombosis and embolism; Z30.2 Encounter for sterilization; N94.89 Other specified conditions associated with female genital organs and menstrual cycle; Z79.899 Other long term (current) drug therapy; Z63.0 Problems in relationship with spouse or partner
CPT/HCPCS: 58661; 00840; 81025; 85027; 86850; 86870; 86900; 86901; 88305; J2405